=== PATIENT | female | born 1945 | race Hispanic/Latino ===

== ENCOUNTER 2017-07-26 09:20 | Observation (INO) | payer MEDICARE, OTHER ==
[2017-07-26 09:25] VITALS: BMI 29.2
[2017-07-26] MEDS ORDERED: Sodium Chloride 0.9% 1,000 ML IV STA (09:33)
--- NOTE | 2017-07-26 09:35 | ED PDOC ---
HPI: Abdomen Time Seen by Provider: 07/26/17 09:32 Chief Complaint (Nursing): Abdominal Pain Chief Complaint (Provider): Abd pain History Per: Patient History/Exam Limitations: no limitations Onset/Duration Of Symptoms: Days (3 weeks) Current Symptoms Are (Timing): Still Present Additional History Per: Patient Additional Complaint(s): Abd pain off and on for 3 weeks on the right lower and all over. Was suppose to get a catscan done for evaluation but has not done it yet. Pt. had constipation for 4 days so took Linzess for it and then started getting a lot of diarrhea, some blood tinged. No dysuria. No weakness, headaches, dizziness. Has nausea, no vomit. Has right lower back pain. Past Medical History Reviewed: Nursing Documentation, Vital Signs Vital Signs: Last Vital Signs Temp 98.2 F 07/26/17 09:23 Pulse 72 07/26/17 09:23 Resp 20 07/26/17 09:23 BP 125/82 07/26/17 09:23 Pulse Ox 98 07/26/17 13:38 - Medical History PMH: Anemia, Anxiety, Arthritis (NECK AND BACK), Asthma, Diverticulitis, HTN, Hypercholesterolemia (Does not take medications), Pneumonia, Sleep Apnea Denies: Chronic Kidney Disease - Surgical History Surgical History: No Surg Hx - Family History Family History: States: Unknown Family Hx - Living Arrangements Living Arrangements: With Family - Social History Current smoker - smoking cessation education provided: No Alcohol: None Drugs: Denies - Immunization History Hx Influenza Vaccination: No Hx Pneumococcal Vaccination: No - Home Medications Home Medications: Ambulatory Orders Medication Instructions Recorded Alprazolam 0.5 tab PO HS PRN 10/19/14 Gabapentin [Neurontin] 300 mg PO HS 10/19/14 ALPRAZolam [Xanax] 0.25 mg PO BID 12/16/15 Hyoscyamine Sulfate [Levbid] 0.375 mg PO DAILY 12/16/15 Telmisartan [Micardis] 40 mg PO DAILY 12/16/15 traMADol [Ultram] 50 mg PO DAILY PRN 12/16/15 Linaclotide [Linzess] 145 mcg PO PRN PRN 05/30/16 - Allergies Allergies/Adverse Reactions: Allergies Allergy/AdvReac Type Severity Reaction Status Date / Time ciprofloxacin [From Cipro] Allergy RASH Verified 07/26/17 09:33 ciprofloxacin HCl Allergy RASH Verified 07/26/17 09:33 [From Cipro] iodine Allergy RASH Verified 07/26/17 09:33 ondansetron HCl Allergy ANAPHYLAXIS Verified 07/26/17 09:33 [From Zofran (as hydrochloride)] pneumococcal vaccine Allergy RASH Verified 07/26/17 09:33 hydromorphone HCl AdvReac Intermediate ANAPHYLAXIS Verified 07/26/17 09:33 [From Dilaudid] Review of Systems ROS Statement: Except As Marked, All Systems Reviewed And Found Negative Gastrointestinal: Positive for: Nausea, Abdominal Pain, Diarrhea, Constipation, Hematochezia Physical Exam - Reviewed Nursing Documentation Reviewed: Yes Vital Signs Reviewed: Yes - Physical Exam Appears: Positive for: Non-toxic, No Acute Distress Head Exam: Positive for: ATRAUMATIC, NORMAL INSPECTION, NORMOCEPHALIC Skin: Positive for: Normal Color, Warm, DRY Eye Exam: Positive for: EOMI, Normal appearance, PERRL ENT: Positive for: Normal ENT Inspection Neck: Positive for: Normal, Painless ROM Cardiovascular/Chest: Positive for: Regular Rate, Rhythm Respiratory: Positive for: CNT, Normal Breath Sounds Gastrointestinal/Abdominal: Positive for: Bowel Sounds, Soft, Tenderness ( diffuse) Back: Positive for: Other (mild r lower). Negative for: L CVA Tenderness, R CVA Tenderness Extremity: Positive for: Normal ROM Neurologic/Psych: Positive for: Alert, Oriented - Laboratory Results Result Diagrams: 07/26/17 09:56 07/26/17 09:56 Interpretation Of Abn Labs: no acute Urine dip results: Negative for: Leukocyte Esterase, Nitrate - ECG ECG Rhythm: Positive for: Normal ST Segment, Sinus Rhythm. Negative for: Normal QRS (inferior q waves) O2 Sat by Pulse Oximetry: 98 Pulse Ox Interpretation: Normal - CT Scan/US ct Other Rad Studies (CT/US): Read By Radiologist Other Rad Interpretation: gallstones - Progress ED Course And Treament: 1353: Stable. AAOx3. Will give tylenol for pain control. No narcotics as pt. has anaphylaxis from dilaudid. Spoke with [facility] resident, will need admit for further eval. ED OBSERVATION Date of observation admission: 07/26/17 Time of observation admission: 09:35 - Observation admission statement Patient is being placed in observation because:: abd pain eval - Goals of Observation Goals of observation are:: pain control Disposition - Clinical Impression Clinical Impression: Abdominal pain - Patient ED Disposition Is Patient to be Admitted: Yes Counseled Patient/Family Regarding: Studies Performed, Diagnosis - Disposition Disposition Time: 13:54 Condition: FAIR - Pt Status Changed To: Hospital Disposition Of: Observation - POA Present On Arrival: None
[2017-07-26] MEDS ORDERED: Barium Sulfate Susp 2.1% w/v, 2.0% w/w 450 mL Bottle PO ONE ×3 (09:45)
[2017-07-26 10:05] LABS: BASO % 0.8 % (0.0-2.0); EOS # 0.2 K/uL (0.0-0.7); EOS % 3.3 % (0.0-4.0); LYMPH # 1.9 K/uL (1.0-4.3); LYMPH % 31.2 % (20.0-40.0); MEAN CELL VOLUME 93.3 fl (81.0-99.0); MEAN CORPUSCULAR HEMOGLOBIN 31.3 pg (27.0-31.0); MEAN CORPUSCULAR HGB CONC 33.6 g/dL (33.0-37.0); MEAN PLATELET VOLUME 8.6 fl (7.2-11.7); MONO # 0.6 K/uL (0.0-0.8); MONO % 10.3 % (0.0-10.0); NEUT # 3.4 K/uL (1.8-7.0); NEUT % 54.4 % (50.0-75.0); NRBC % 0.4 % (0.0-0.0); RED CELL DISTRIBUTION WIDTH 13.9 % (11.5-14.5); WHITE BLOOD COUNT 6.2 K/uL (4.8-10.8)
[2017-07-26 10:27] LABS: ALB/GLOB RATIO 1.3 (1.0-2.1); ALKALINE PHOSPHATASE 68 U/L (38-126); ALT/SGPT 25 U/L (9-52); AST/SGOT 27 U/L (14-36); BILIRUBIN,TOTAL 1.2 mg/dl (0.2-1.3); BLOOD UREA NITROGEN 16 mg/dl (7-17); CALCIUM 9.9 mg/dL (8.4-10.2); CARBON DIOXIDE 27 mmol/L (22-30); CHLORIDE 102 mmol/L (98-107); GFR AFRICAN-AMERICAN > 60; GLUCOSE,RANDOM 117 mg/dL (65-105); LIPASE 73 U/L (23-300); POTASSIUM 3.7 MMOL/L (3.6-5.0); SODIUM 139 mmol/l (132-148); TOTAL PROTEIN 7.8 G/DL (6.3-8.2)
--- NOTE | 2017-07-26 12:58 | CARD ---
APPROVED REPORT EKG Measurement Heart [id number] <Conclusion> Normal sinus rhythm Inferior infarct, age undetermined Abnormal ECG
--- NOTE | 2017-07-26 13:19 | CT ---
PROCEDURE: CT abdomen and pelvis dated 07/26/2017 HISTORY: Pain. COMPARISON: Comparison made with CT scan of the abdomen and pelvis 11/07/2016. TECHNIQUE: Contiguous axial images of the abdomen and pelvis. Oral contrast was administered. No IV contrast given. Coronal and Sagittal reformats generated. . Study slightly limited due to the lack of circulating intravenous contrast material. The Radiation dose: Total exam DLP = 751.45 mGy-cm. This CT exam was performed using one or more of the following dose reduction techniques: Automated exposure control, adjustment of the mA and/or kV according to patient size, and/or use of iterative reconstruction technique. FINDINGS: LOWER THORAX: Atelectatic/scarring changes both lung bases left greater than right. The. LIVER: Liver exhibits normal size measuring approximately 14 cm in CC dimension. No obvious hepatic mass collection or calcification on. . No gross lesion or ductal dilatation. GALLBLADDER AND BILE DUCTS: Cholelithiasis again noted. . No evidence of significant gallbladder wall thickening or pericholecystic fluid collections. PANCREAS: The pancreas is slightly atrophic and fatty replaced. . No obvious pancreatic mass collection or calcification. No significant pancreatic ductal dilatation. SPLEEN: Unremarkable. No splenomegaly. ADRENALS: The adrenal glands are slightly nodular in appearance. KIDNEYS AND URETERS: Kidneys demonstrate relatively symmetric size. No evidence of nephrolithiasis or hydronephrosis. BLADDER: Urinary bladder is incompletely distended which may account for slight thick-walled appearance. The possibility of a cystitis not excluded. No evidence of intraluminal urinary bladder calculi. REPRODUCTIVE: Hysterectomy APPENDIX: What is felt to represent the appendix best seen on coronal image number [id number]. No evidence of acute appendicitis. The BOWEL: Evaluation of the bowel is limited due to incomplete opacification. . The stomach is incompletely distended which presumably accounts for slight thick-walled appearance. Possibility of a gastritis or other intrinsic -invasive wall lesion cannot be excluded. Of. Visualized loops of small bowel exhibit normal contour and caliber. No evidence of acute mechanical small bowel obstruction. Stool and air seen throughout the colon. Diffuse colonic diverticulosis again noted predominantly located along the ascending, descending and sigmoid colon. There is mild wall thickening of the at ascending colon likely due to incomplete distention, peristalsis, non-opacified stool and muscular hypertrophy. No definitive radiographic evidence of acute diverticulitis. . Re- demonstrated are at least 2 fat containing ventral wall hernias, the more inferiorly located paraumbilical hernia contains very short segment of the anterior wall of the transverse colon which protrudes slightly through the defect . No evidence of obstruction. PERITONEUM: Unremarkable. No fluid collection. No free air. LYMPH NODES: Unremarkable. No enlarged lymph nodes. VASCULATURE: Unremarkable. No aortic aneurysm. BONES: Mild multilevel degenerative spondylosis of the lower thoracic and lumbar spine. No acute compression fractures no retropulsed fragments. OTHER FINDINGS: None. IMPRESSION: Diffuse colonic diverticulosis. No definitive radiographic evidence acute diverticulitis. 2 ventral wall hernias containing mesenteric fat, the more inferiorly located paraumbilical hernia contains a short segment of the anterior wall of the transverse colon which protrudes slightly into this hernia . Cholelithiasis. Nodular appearing adrenal glands. Urinary bladder is incompletely distended which may account for slight thick-walled appearance. The possibility of a cystitis not excluded. See above discussion for additional details and findings.
[2017-07-26] MEDS ORDERED: Acetaminophen 325 MG/10.15 ML PO STA ×2 (13:52)
[2017-07-26] MEDS: Dextrose 5%/0.45% NS 1,000 ML IV SCH (15:39)
--- NOTE | 2017-07-26 15:50 | CP.PCM.HP ---
History of Present Illness - History of Present Illness History of Present Illness: This is a 72 y/o F complaining of severe abdominal diffuse pain that aggravated since 3 weeks ago. Pain started several months ago, is described as pressure- like, more intense in epigastric and lower quadrants, intermittent, aggravates with bread and wheat toasts intake. Pt reports significant straining on bowel movements, BM every 2-3 days. Last BM was last night after 1 tab of Linzess, blood-tinged watery diarrhea. Pt complains of nausea since this morning. Pt reports having a CT scan on December this year, gallstones was reported to her at that time. ROS: Pt denies fever, headache, dizziness, CP, SOB, acid reflux, vomiting, urinary complaints or rash. PMD: Dr Pollack. Allergies: Anaphylaxis to Dilaudid. Ciprofloxacin, Iodine, Zofran. NO food allergies. PMHx: Chronic constipation, Diverticulosis, Asthma and HTN. PSHx: Hysterectomy in , Sigmoid Colectomy in 2012 due to diverticulitis. FHx: Non-Contributory. NO celiac disease Hx. SHx: No tobacco, EtOH socially and NO recreational drugs. ED Course: -CBC unremarkable -CMP unremarkable -EKG-normal sinus rythm, old inferior infarct. -CT Abdomen: diffuse colonic diverticulosis, 2 ventral wall hernias, cholelithiasis, possible cystitis. -Lipase 73-WNL -Troponin neg 1x. -Acetaminophen for pain relief. Present on Admission - Present on Admission Any Indicators Present on Admission: No History of Uncontrolled Diabetes: No Past Patient History - Infectious Disease Hx of Infectious Diseases: None - Tetanus Immunizations Tetanus Immunization: Unknown - Past Medical History & Family History Past Medical History?: Yes - Past Social History Alcohol: None Drugs: Denies - CARDIAC Hx Hypercholesterolemia: Yes (Does not take medications) Hx Hypertension: Yes - PULMONARY Hx Asthma: Yes Hx Pneumonia: Yes Hx Sleep Apnea: Yes - NEUROLOGICAL Hx Neurological Disorder: No - HEENT Hx HEENT Problems: Yes Hx Cataracts: Yes (BILATERAL) Other/Comment: DETACHED RETINA-RIGHT - RENAL Hx Chronic Kidney Disease: No - ENDOCRINE/METABOLIC Hx Endocrine Disorders: No - HEMATOLOGICAL/ONCOLOGICAL Hx Anemia: Yes - INTEGUMENTARY Hx Dermatological Problems: No - MUSCULOSKELETAL/RHEUMATOLOGICAL Hx Arthritis: Yes (NECK AND BACK) - GASTROINTESTINAL Hx Diverticulitis: Yes - GENITOURINARY/GYNECOLOGICAL Hx Genitourinary Disorders: No Hx Urinary Tract Infection: Yes Other/Comment: Chronic cystitis - PSYCHIATRIC Hx Anxiety: Yes - SURGICAL HISTORY Hx Surgeries: Yes Hx Cataract Extraction: Yes Hx Eye Surgery: Yes (VINAY CATARACT;DETACHED RETINA) Hx Hysterectomy: Yes Other/Comment: COLON RESECTION. RIGHT CARPAL TUNNEL - ANESTHESIA Hx Anesthesia: Yes Hx Anesthesia Reactions: No Hx Malignant Hyperthermia: No Meds Allergies/Adverse Reactions: Allergies Allergy/AdvReac Type Severity Reaction Status Date / Time ciprofloxacin [From Cipro] Allergy RASH Verified 07/26/17 09:33 ciprofloxacin HCl Allergy RASH Verified 07/26/17 09:33 [From Cipro] iodine Allergy RASH Verified 07/26/17 09:33 ondansetron HCl Allergy ANAPHYLAXIS Verified 07/26/17 09:33 [From Zofran (as hydrochloride)] pneumococcal vaccine Allergy RASH Verified 07/26/17 09:33 hydromorphone HCl AdvReac Intermediate ANAPHYLAXIS Verified 07/26/17 09:33 [From Dilaudid] Physical Exam - Constitutional Appears: Well, No Acute Distress - Head Exam Head Exam: ATRAUMATIC, NORMAL INSPECTION - Eye Exam Eye Exam: EOMI, Normal appearance - ENT Exam ENT Exam: Mucous Membranes Dry - Neck Exam Neck exam: Positive for: Full Rom, Normal Inspection - Respiratory Exam Respiratory Exam: Clear to Auscultation Bilateral, NORMAL BREATHING PATTERN - Cardiovascular Exam Cardiovascular Exam: +S1, +S2, Systolic Murmur - GI/Abdominal Exam GI & Abdominal Exam: Normal Bowel Sounds, Soft, Tenderness (over lower quadrants areas.). absent: Guarding - Neurological Exam Neurological exam: Alert, Oriented x3 - Skin Skin Exam: Dry, Intact, Normal Color Results - Vital Signs Recent Vital Signs: Last Vital Signs Temp 98.2 F 07/26/17 09:23 Pulse 72 07/26/17 09:23 Resp 20 07/26/17 09:23 BP 125/82 07/26/17 09:23 Pulse Ox 98 07/26/17 13:54 - Labs Result Diagrams: 07/26/17 09:56 07/26/17 09:56 Labs: Laboratory Results - last 24 hr 07/26/17 07/26/17 07/26/17 09:56 09:56 10:39 WBC 6.2 RBC 5.15 Hgb 16.1 H Hct 48.0 H MCV 93.3 MCH 31.3 H MCHC 33.6 RDW 13.9 Plt Count 201 MPV 8.6 Neut % (Auto) 54.4 Lymph % (Auto) 31.2 [place] % (Auto) 10.3 H Eos % (Auto) 3.3 Baso % (Auto) 0.8 Neut # 3.4 Lymph # 1.9 [place] # 0.6 Eos # 0.2 Baso # 0.0 Sodium 139 Potassium 3.7 Chloride 102 Carbon Dioxide 27 Anion Gap 14 BUN 16 Creatinine 0.9 Est GFR ( Amer) > 60 Est GFR (Non-Af Amer) > 60 Random Glucose 117 H Calcium 9.9 Total Bilirubin 1.2 AST 27 ALT 25 Alkaline Phosphatase 68 Troponin I < 0.0120 Total Protein 7.8 Albumin 4.5 Globulin 3.4 Albumin/Globulin Ratio 1.3 Lipase 73 Stool Occult Blood Negative Assessment & Plan - Assessment and Plan (Free Text) Assessment: 72 y/o F wiht a PMHx of Asthma, HTN, Diverticulosis and chronic constipation admitted for chronic severe diffuse abdominal pain. Plan: 1. Severe abdominal pain - EKG-normal sinus rythm, old inferior infarct. - CT Abdomen: diffuse colonic diverticulosis, 2 ventral wall hernias, cholelithiasis, possible cystitis. - Lipase 73-WNL - Troponin neg 1x. - Celiac disease panel ordered. - Repeat troponin I ordered. - Dextrose 5% 1L IV infusion at 84 mL/hr. - Metoclopramide 10 mg IVP Q6 PRN. - Toradol 30 mg IVP Q6 PRN. - Morphine 2mg IVP Q6 PRN for severe pain. - NPO now. Liquid diet will be initiated tomorrow. 2. Hypertension - Will resume home medications: Telmisartan 40 mg 3. DVT prophylaxis - SCDs - Lovenox 40mg SC HS. - Date & Time Date: 07/26/17 Time: 14:50
[2017-07-26] MEDS ORDERED: Albuterol HFA 90 mcg/actuation (8 g) IH PRN (19:59)
[2017-07-26] MEDS ORDERED: Patient's Own Med (Budesonide/Formoterol Fumarate [Symbicort 80-4.5 Mcg Inhaler] 2 PUFF) IH SCH (20:00)
[2017-07-26] MEDS ORDERED: GABAPENTIN ENACARBIL 300 MG PO SCH (22:00)
[2017-07-26] MEDS ORDERED: Enoxaparin 40 mg Syringe SC SCH (22:00)
[2017-07-26 22:31] VITALS: O2SAT 95
[2017-07-27] MEDS: Dextrose 5%/0.45% NS 1,000 ML IV SCH (03:10)
[2017-07-27 08:04] VITALS: BP 148/78; PULSE 63; RESP 19; TEMP 98.8
[2017-07-27] MEDS ORDERED: [UNRECOGNIZED DRUG - OTHER] PO SCH (09:00)
[2017-07-27] MEDS ORDERED: Simethicone 80 mg Chewtab PO ONE (10:03)
--- NOTE | 2017-07-27 14:06 | CP.PCM.DIS ---
Provider - Provider Date of Admission: 07/26/17 09:33 Attending physician: Ernesto Nam MD Time Spent in preparation of Discharge (in minutes): 30 Diagnosis - Discharge Diagnosis (1) Abdominal pain Status: Acute Comment: possible 2/2 medication side effects (from Linzess). Resolved on admission. F/u with PMD next week. (2) Hypertension Status: Chronic Priority: Medium Comment: c/w current management and f/u with PMD Hospital Course - Lab Results Lab Results: Most Recent Lab Values WBC 6.2 K/uL (4.8-10.8) 07/26/17 09:56 RBC 5.15 Mil/uL (3.80-5.20) 07/26/17 09:56 Hgb 16.1 g/dL (12.0-16.0) H 07/26/17 09:56 Hct 48.0 % (34.0-47.0) H 07/26/17 09:56 MCV 93.3 fl (81.0-99.0) 07/26/17 09:56 MCH 31.3 pg (27.0-31.0) H 07/26/17 09:56 MCHC 33.6 g/dL (33.0-37.0) 07/26/17 09:56 RDW 13.9 % (11.5-14.5) 07/26/17 09:56 Plt Count 201 K/uL (130-400) 07/26/17 09:56 MPV 8.6 fl (7.2-11.7) 07/26/17 09:56 Neut % (Auto) 54.4 % (50.0-75.0) 07/26/17 09:56 Lymph % (Auto) 31.2 % (20.0-40.0) 07/26/17 09:56 [place] % (Auto) 10.3 % (0.0-10.0) H 07/26/17 09:56 Eos % (Auto) 3.3 % (0.0-4.0) 07/26/17 09:56 Baso % (Auto) 0.8 % (0.0-2.0) 07/26/17 09:56 Neut # 3.4 K/uL (1.8-7.0) 07/26/17 09:56 Lymph # 1.9 K/uL (1.0-4.3) 07/26/17 09:56 [place] # 0.6 K/uL (0.0-0.8) 07/26/17 09:56 Eos # 0.2 K/uL (0.0-0.7) 07/26/17 09:56 Baso # 0.0 K/uL (0.0-0.2) 07/26/17 09:56 Sodium 139 mmol/l (132-148) 07/26/17 09:56 Potassium 3.7 MMOL/L (3.6-5.0) 07/26/17 09:56 Chloride 102 mmol/L (98-107) 07/26/17 09:56 Carbon Dioxide 27 mmol/L (22-30) 07/26/17 09:56 Anion Gap 14 (10-20) 07/26/17 09:56 BUN 16 mg/dl (7-17) 07/26/17 09:56 Creatinine 0.9 mg/dL (0.7-1.2) 07/26/17 09:56 Est GFR ( Amer) > 60 07/26/17 09:56 Est GFR (Non-Af Amer) > 60 07/26/17 09:56 Random Glucose 117 mg/dL (65-105) H 07/26/17 09:56 Calcium 9.9 mg/dL (8.4-10.2) 07/26/17 09:56 Total Bilirubin 1.2 mg/dl (0.2-1.3) 07/26/17 09:56 AST 27 U/L (14-36) 07/26/17 09:56 ALT 25 U/L (9-52) 07/26/17 09:56 Alkaline Phosphatase 68 U/L (38-126) 07/26/17 09:56 Troponin I < 0.0120 ng/mL (0.00-0.120) 07/26/17 17:20 Total Protein 7.8 G/DL (6.3-8.2) 07/26/17 09:56 Albumin 4.5 g/dL (3.5-5.0) 07/26/17 09:56 Globulin 3.4 gm/dL (2.2-3.9) 07/26/17 09:56 Albumin/Globulin Ratio 1.3 (1.0-2.1) 07/26/17 09:56 Lipase 73 U/L (23-300) 07/26/17 09:56 Stool Occult Blood Negative (NEGATIVE) 07/26/17 10:39 - Hospital Course Hospital Course: 72 y/o F wiht a PMHx of Asthma, HTN, Diverticulosis and Chronic constipation admitted for management of chronic severe diffuse abdominal pain associated with blood-tinged watery diarrhea. During admission patient was managed with NPO , IV fluids, antiemetics , and pain control. abdomen CT showed diffuse colonic diverticulosis, 2 ventral wall hernias containing mesenteric fat, and cholelithiasis, and no evidence of obstruction. Troponin x 2 neg. FOBT neg. Lipase neg. CBC/CMP unremarkable. Today morning we started advancing diet from liquid diet to solid, and patient tolerated well PO challenge. No more reported episodes of diarrheas after admission. Patient was afebrile, and vital signs stable WNL. Patient stable to be discharge home, and will f/u with PMD, Dr. Nam next week. We recommended keep good hydration, fruits and vegetables, Colace 200 mg PO daily PRN and Miralax 17 gm daily PRN to manage constipation at home, as well as avoid strong laxative. If current recommended constipation treatment do not work, patient could discuss with her PMD, Lactulose PO. - Date & Time of H&P Date of H&P: 07/26/17 Time of H&P: 15:15 Discharge Exam - Head Exam Head Exam: ATRAUMATIC, NORMAL INSPECTION - ENT Exam ENT Exam: Mucous Membranes Moist - Respiratory Exam Respiratory Exam: Clear to PA & Lateral, NORMAL BREATHING PATTERN - Cardiovascular Exam Cardiovascular Exam: REGULAR RHYTHM, +S1, +S2 - GI/Abdominal Exam GI & Abdominal Exam: Normal Bowel Sounds, Soft. absent: Distended, Tenderness - Extremities Exam Extremities exam: normal inspection Additional comments: No edema in lower extremities, no calves tenderness noted. - Neurological Exam Neurological exam: Alert, Oriented x3 - Skin Skin Exam: Dry, Intact, Normal Color Discharge Plan - Discharge Medications Prescriptions: Docusate Sodium [Colace] 200 mg PO DAILY PRN #30 capsule PRN Reason: Constipation Polyethylene Glycol 3350 [Miralax] 17 gm PO DAILY PRN #1 PRN Reason: Constipation - Follow Up Plan Condition: GOOD Disposition: HOME/ ROUTINE Patient education suggested?: Yes Instructions: Diverticulitis (DC) Additional Instructions: f/u with PMD in 1 week ER precautions given
== END 2017-07-27 15:20 | disposition home or self-care (01) ==
LOC: H.ER 09:20 → H.EROBSV 09:33 → H.ERHOLD 14:00 → H.MEDSURG1 18:08
PROVIDERS: ADMIT Family Medicine; ATTEND Family Medicine
DX: K57.30 Diverticulosis of large intestine without perforation or abscess without bleeding (principal); E78.00 Pure hypercholesterolemia, unspecified; G47.30 Sleep apnea, unspecified; I10 Essential (primary) hypertension; J45.909 Unspecified asthma, uncomplicated; K59.00 Constipation, unspecified; K80.20 Calculus of gallbladder without cholecystitis without obstruction; N30.20 Other chronic cystitis without hematuria; Z79.899 Other long term (current) drug therapy; Z87.01 Personal history of pneumonia (recurrent); Z87.440 Personal history of urinary (tract) infections; Z90.710 Acquired absence of both cervix and uterus; D64.9 Anemia, unspecified; F41.9 Anxiety disorder, unspecified; G56.01 Carpal tunnel syndrome, right upper limb; H26.9 Unspecified cataract; K59.09 Other constipation; M19.90 Unspecified osteoarthritis, unspecified site; M54.5 Low back pain
CPT/HCPCS: 74176; 80053; 82784; 83516; 83690; 84484; 85025; 93005; 96374; 99285; G0328; G0378; J1650; J1885; J2765; J7040; J7042

== ENCOUNTER 2017-11-21 18:18 | Inpatient (IN) | payer MEDICARE, OTHER ==
[2017-11-21 18:18] VITALS: BMI 29.2
--- NOTE | 2017-11-21 20:08 | ED PDOC ---
HPI: Chest Pain Time Seen by Provider: 11/21/17 19:12 Chief Complaint (Nursing): Chest Pain Chief Complaint (Provider): Chest Pain History Per: Patient History/Exam Limitations: no limitations Onset/Duration Of Symptoms: Days (x1) Current Symptoms Are (Timing): Still Present Additional Complaint(s): 72 year old female with previous medical history of CAD, hypertension and hypercholesterolemia, who presents to the emergency department via EMS for a complaint of left-sided chest pressure associated with left-sided shoulder pain , nausea, vomiting and sweating ongoing since this morning. Denied any shortness of breath. Upon arrival to ED, chest pain had resolved but patient reported feeling anxious because symptoms were similar to previous heart attack. Patient also stated she took 3 baby Aspirins prior to arrival and thinks her left shoulder pain stems from her cervical stenosis. PMD: none provided Past Medical History Reviewed: Historical Data, Nursing Documentation, Vital Signs Vital Signs: Last Vital Signs Temp 98 F 11/21/17 18:29 Pulse 63 11/21/17 23:04 Resp 16 11/21/17 23:04 BP 154/68 H 11/21/17 23:04 Pulse Ox 95 11/21/17 21:51 - Medical History PMH: Anemia, Anxiety, Arthritis (NECK AND BACK), Asthma, Depression, Diverticulitis, HTN, Hypercholesterolemia, Pneumonia, Sleep Apnea Denies: Chronic Kidney Disease - Surgical History Surgical History: Denies: No Surg Hx - Family History Family History: States: Unknown Family Hx - Social History Current smoker - smoking cessation education provided: No Ex-Smoker (has not smoked in the last 12 months): No Alcohol: None Drugs: Denies - Immunization History Hx Influenza Vaccination: No Hx Pneumococcal Vaccination: No - Home Medications Home Medications: Ambulatory Orders Medication Instructions Recorded ALPRAZolam [Xanax] 0.25 mg PO DAILY PRN 12/16/15 Budesonide/Formoterol Fumarate 2 puff IH DAILY 07/26/17 [Symbicort 80-4.5 Mcg Inhaler] Fluticasone Nasal [Flonase] 2 spray JOANNA DAILY PRN 07/26/17 Gabapentin Enacarbil [Horizant] 300 mg PO HS PRN 07/26/17 Aspirin [Ecotrin] 81 mg PO DAILY tabec 08/13/17 Montelukast [Singulair] 10 mg PO DAILY 11/21/17 Telmisartan [Micardis] 40 mg PO DAILY 11/21/17 - Allergies Allergies/Adverse Reactions: Allergies Allergy/AdvReac Type Severity Reaction Status Date / Time ciprofloxacin [From Cipro] Allergy RASH Verified 11/21/17 18:28 ciprofloxacin HCl Allergy RASH Verified 11/21/17 18:28 [From Cipro] iodine Allergy RASH Verified 11/21/17 18:28 ondansetron HCl Allergy ANAPHYLAXIS Verified 11/21/17 18:28 [From Zofran (as hydrochloride)] pneumococcal vaccine Allergy RASH Verified 11/21/17 18:28 hydromorphone HCl AdvReac Intermediate ANAPHYLAXIS Verified 11/21/17 18:28 [From Dilaudid] Review of Systems ROS Statement: Except As Marked, All Systems Reviewed And Found Negative Constitutional: Positive for: Sweats Cardiovascular: Positive for: Chest Pain (left-sided pressure-resolved) Respiratory: Negative for: Shortness of Breath Gastrointestinal: Positive for: Nausea, Vomiting Musculoskeletal: Positive for: Shoulder Pain (left-sided) Psych: Positive for: Anxiety Physical Exam - Reviewed Nursing Documentation Reviewed: Yes Vital Signs Reviewed: Yes - Physical Exam Appears: Positive for: Well, Non-toxic, No Acute Distress Head Exam: Positive for: ATRAUMATIC, NORMAL INSPECTION, NORMOCEPHALIC Skin: Positive for: Normal Color Eye Exam: Positive for: Normal appearance, EOMI, PERRL. Negative for: Nystagmus ENT: Positive for: Normal ENT Inspection Neck: Positive for: Normal, Painless ROM, Supple. Negative for: Decreased ROM Cardiovascular/Chest: Positive for: Regular Rate, Rhythm, Chest Non Tender Respiratory: Positive for: Normal Breath Sounds. Negative for: Decreased Breath Sounds, Wheezing, Respiratory Distress Gastrointestinal/Abdominal: Positive for: Normal Exam, Soft. Negative for: Tenderness Back: Positive for: Normal Inspection. Negative for: L CVA Tenderness, R CVA Tenderness Extremity: Positive for: Normal ROM (upper/lower). Negative for: Pedal Edema ( bilateral), Calf Tenderness (bilateral) Neurologic/Psych: Positive for: Alert (x3), Oriented. Negative for: Motor/ Sensory Deficits - Laboratory Results Result Diagrams: 11/21/17 20:40 11/21/17 20:40 - ECG O2 Sat by Pulse Oximetry: 95 (RA) Pulse Ox Interpretation: Normal Medical Decision Making Medical Decision Making: Initial Impression: Chest pain (high risk) Initial Plan: * EKG * BNP * Troponin I * CBC * PTT * PT * CXR ____ Time: 1940 --EKG: NSR at 62 BMP. Old septal infarct seen with no changes. No STEMI noted. --Patient to be admitted to hospital for observation due to recent STEMI, cardiac risk factors, age and current symptoms. Time: 2137 --Discussed case with family practice attending. Patient will be admitted to Dr. Gonzales under family practice services. Current workup negative Scribe Attestation: Documented by Nat Manjarrez, acting as a scribe for Jorge Bingham MD. Provider Scribe Attestation: All medical record entries made by the Scribe were at my direction and personally dictated by me. I have reviewed the chart and agree that the record accurately reflects my personal performance of the history, physical exam, medical decision making, and the department course for this patient. I have also personally directed, reviewed, and agree with the discharge instructions and disposition. Disposition - Clinical Impression Clinical Impression: Chest pain - Disposition Disposition Time: 21:38 Condition: GUARDED
[2017-11-21 20:48] LABS: BASO % 0.5 % (0.0-2.0); EOS # 0.1 K/uL (0.0-0.7); EOS % 1.3 % (0.0-4.0); HEMOGLOBIN 14.7 g/dL (12.0-16.0); LYMPH # 1.3 K/uL (1.0-4.3); LYMPH % 12.6 % (20.0-40.0); MEAN CELL VOLUME 91.3 fl (81.0-99.0); MEAN CORPUSCULAR HGB CONC 32.9 g/dL (33.0-37.0); MEAN PLATELET VOLUME 8.3 fl (7.2-11.7); MONO # 0.8 K/uL (0.0-0.8); NEUT # 7.7 K/uL (1.8-7.0); NEUT % 77.6 % (50.0-75.0); RBC 4.9 Mil/uL (3.80-5.20); RED CELL DISTRIBUTION WIDTH 13.7 % (11.5-14.5)
[2017-11-21 21:06] LABS: PARTIAL THROMBOPLASTIN TIME 26.9 Seconds (25.6-37.1); PROTHROMBIN TIME 11.1 Seconds (9.8-13.1)
[2017-11-21 21:08] LABS: BLOOD UREA NITROGEN 17 mg/dl (7-17); CALCIUM 9.6 mg/dL (8.4-10.2); GFR AFRICAN-AMERICAN > 60; GFR NON-AFRICAN AMERICAN > 60
[2017-11-21 21:22] LABS: B-TYPE NATRIURETIC PEPTIDE 97.3 pg/ml (0-900)
--- NOTE | 2017-11-21 22:27 | CP.PCM.HP ---
<Juan Laguna - Last Filed: 11/22/17 00:29> History of Present Illness - History of Present Illness History of Present Illness: CC: left chest pressure, left shoulder pain HPI: 72 y/o woman w/ pmh of HTN, HLD, diverticulosis, CAD, STEMI s/p x1 stent in 08/2017 brought by EMS presents to the ED w/ left chest pressure and left shoulder pain. Patient reports pain since yesterday, sharp in nature, radiating to left neck and head, constant, not relieved by anything, and worsened w/ movement. Patient also complains of left sided chest pressure similar to pressure when she had [place] 3 months ago. Patient took aleve without relief. Patient took tramadol w/ mild relief but had x1 episode of non-bloody/ non-bilious vomit. Patient then felt chills and left sided chest pressure. Patient took x3 baby aspirin prior to ED arrival. Patient denies recent trauma or fall. Patient denies headaches, dizziness, SOB, abdominal pain, dysuria, or fever. ED course: Vitals: 98.0 F, 63 bpm, 154/68 mm Hg, resp 16, O2 95% RA CBC: 10.0>14.7/44.7<187 BMP: 135/3.8, 93/32, 17/0.9, glucose 124, pro-BNP: 97.3 Troponin I: <0.0120 PTT: 26.9 PT: 11.1 INR: 1.0 EKG: NSR, old infarct, no acute ST elevation/depression, no widened QT, QRS, ND CXR: (preliminary) no acute disease process PMD: Dr Pollack. Allergies: Anaphylaxis to Dilaudid. Ciprofloxacin, Iodine, Zofran. NO food allergies. PMHx: Chronic constipation, Diverticulosis, Asthma and HTN. meds: see medlist PSHx: Hysterectomy in 1990s, Sigmoid Colectomy in 2012 due to diverticulitis. FamHx: Non-Contributory SOC: denies smoking, alcohol, and illegal drugs. ROS: 12 points assessed and negative unless otherwise reported in HPI Present on Admission - Present on Admission Any Indicators Present on Admission: No History of DVT/PE: No History of Uncontrolled Diabetes: No Urinary Catheter: No Decubitus Ulcer Present: No Review of Systems - Review of Systems All systems: reviewed and no additional remarkable complaints except - Constitutional Constitutional: Chills. absent: Fever, Frequent Falls, Headache - EENT Eyes: absent: Change in Vision - Cardiovascular Cardiovascular: As Per HPI. absent: Dyspnea, Leg Edema, Palpitations, Syncope - Respiratory Respiratory: absent: Dyspnea, Wheezing - Gastrointestinal Gastrointestinal: Nausea, Vomiting. absent: Abdominal Pain, Diarrhea, Hematochezia, Melena - Genitourinary Genitourinary: absent: Dysuria, Hematuria - Integumentary Integumentary: absent: Rash - Neurological Neurological: absent: Headaches, Paresthesias, Vertigo Past Patient History - Infectious Disease Hx of Infectious Diseases: None - Tetanus Immunizations Tetanus Immunization: Unknown - Past Medical History & Family History Past Medical History?: Yes - Past Social History Alcohol: None Drugs: Denies - CARDIAC Hx Hypercholesterolemia: Yes Hx Hypertension: Yes - PULMONARY Hx Asthma: Yes Hx Pneumonia: Yes Hx Sleep Apnea: Yes - NEUROLOGICAL Hx Neurological Disorder: No - HEENT Hx HEENT Problems: Yes Hx Cataracts: Yes (BILATERAL) Other/Comment: DETACHED RETINA-RIGHT - RENAL Hx Chronic Kidney Disease: No - ENDOCRINE/METABOLIC Hx Endocrine Disorders: No - HEMATOLOGICAL/ONCOLOGICAL Hx Anemia: Yes - INTEGUMENTARY Hx Dermatological Problems: No - MUSCULOSKELETAL/RHEUMATOLOGICAL Hx Arthritis: Yes (NECK AND BACK) - GASTROINTESTINAL Hx Diverticulitis: Yes - GENITOURINARY/GYNECOLOGICAL Hx Genitourinary Disorders: No Hx Urinary Tract Infection: Yes Other/Comment: Chronic cystitis - PSYCHIATRIC Hx Anxiety: Yes Hx Depression: Yes - SURGICAL HISTORY Hx Surgeries: Yes Hx Cataract Extraction: Yes Hx Eye Surgery: Yes (VINAY CATARACT;DETACHED RETINA) Hx Hysterectomy: Yes Other/Comment: COLON RESECTION. RIGHT CARPAL TUNNEL - ANESTHESIA Hx Anesthesia: Yes Hx Anesthesia Reactions: No Hx Malignant Hyperthermia: No Meds Allergies/Adverse Reactions: Allergies Allergy/AdvReac Type Severity Reaction Status Date / Time ciprofloxacin [From Cipro] Allergy RASH Verified 11/21/17 18:28 ciprofloxacin HCl Allergy RASH Verified 11/21/17 18:28 [From Cipro] iodine Allergy RASH Verified 11/21/17 18:28 ondansetron HCl Allergy ANAPHYLAXIS Verified 11/21/17 18:28 [From Zofran (as hydrochloride)] pneumococcal vaccine Allergy RASH Verified 11/21/17 18:28 hydromorphone HCl AdvReac Intermediate ANAPHYLAXIS Verified 11/21/17 18:28 [From Dilaudid] Physical Exam - Constitutional Appears: Non-toxic, No Acute Distress - Head Exam Head Exam: ATRAUMATIC, NORMAL INSPECTION, NORMOCEPHALIC - Eye Exam Eye Exam: Normal appearance - ENT Exam ENT Exam: Normal Exam - Neck Exam Neck exam: Positive for: Full Rom. Negative for: Tenderness - Respiratory Exam Respiratory Exam: Clear to Auscultation Bilateral, NORMAL BREATHING PATTERN. absent: Decreased Breath Sounds, Prolonged Expiratory Phase, Rales, Rhonchi, Wheezes, Respiratory Distress - Cardiovascular Exam Cardiovascular Exam: REGULAR RHYTHM - GI/Abdominal Exam GI & Abdominal Exam: Normal Bowel Sounds, Soft. absent: Tenderness - Extremities Exam Extremities exam: Positive for: full ROM, normal inspection. Negative for: calf tenderness, pedal edema, tenderness - Back Exam Back exam: NORMAL INSPECTION - Neurological Exam Neurological exam: Alert, Oriented x3 - Skin Skin Exam: Dry, Intact, Normal Color, Warm Results - Vital Signs Recent Vital Signs: Last Vital Signs Temp 98 F 11/21/17 18:29 Pulse 63 11/21/17 19:55 Resp 16 11/21/17 19:55 BP 154/68 H 11/21/17 19:55 Pulse Ox 95 11/21/17 21:51 - Labs Result Diagrams: 11/21/17 20:40 11/21/17 20:40 Labs: Laboratory Results - last 24 hr 11/21/17 11/21/17 11/21/17 20:40 20:40 20:40 WBC 10.0 D RBC 4.90 Hgb 14.7 Hct 44.7 MCV 91.3 D MCH 30.0 MCHC 32.9 L RDW 13.7 Plt Count 187 MPV 8.3 Neut % (Auto) 77.6 H Lymph % (Auto) 12.6 L [place] % (Auto) 8.0 Eos % (Auto) 1.3 Baso % (Auto) 0.5 Neut # 7.7 H Lymph # 1.3 [place] # 0.8 Eos # 0.1 Baso # 0.0 PT 11.1 INR 1.0 APTT 26.9 Sodium 135 Potassium 3.8 Chloride 93 L Carbon Dioxide 32 H Anion Gap 14 BUN 17 Creatinine 0.9 Est GFR ( Amer) > 60 Est GFR (Non-Af Amer) > 60 Random Glucose 124 H Calcium 9.6 Troponin I < 0.0120 NT-Pro-B Natriuret Pep 97.3 Assessment & Plan - Assessment and Plan (Free Text) Assessment: 72 y/o woman w/ pmh of HTN, HLD, diverticulosis, CAD, [place] s/p x1 stent in 2016 brought by EMS presents to the ED w/ left chest pressure and left shoulder pain. Plan: Left chest pressure - Rule out ACS - previous [place] 08/2017, x1 stent in [facility] - felt similar pain to [place] 3 months ago - took x3 baby aspirin prior to ED arrival - EKG: NSR, old infarct, no acute ST elevation/depression, no widened QT, QRS, ND - Troponin I: <0.0120 - f/u x2 troponin Q8h - f/u repeat EKG - admit to Tele - continue to monitor for acute changes Left shoulder pain - full ROM - mildly tender - f/u left shoulder XR - tylenol and percocet for pain prn CAD - STEMI s/p x1 stent 08/2017 - on metoprolol succinate 25 mg PO daily, rosuvastatin 10 mg PO daily, ASA 81 mg PO daily, and brilinta 90 mg PO daily HTN - BP mildly elevated 154/68 mm Hg most likely 2/2 to pain - controlled w/ losartan 25 mg PO daily and metoprolol succinate 25 mg PO daily Prophylactic measures - SCDs, patient already on anticoagulant - protonix 40 mg PO daily <Ernesto Nam - Last Filed: 11/22/17 07:03> Results - Vital Signs Recent Vital Signs: Last Vital Signs Temp 98.3 F 11/22/17 05:55 Pulse 61 11/22/17 05:55 Resp 18 11/22/17 05:55 BP 142/74 11/22/17 05:55 Pulse Ox 95 11/22/17 05:55 - Labs Result Diagrams: 11/22/17 04:34 11/22/17 04:34 Labs: Laboratory Results - last 24 hr 11/21/17 11/21/17 11/21/17 20:40 20:40 20:40 WBC 10.0 D RBC 4.90 Hgb 14.7 Hct 44.7 MCV 91.3 D MCH 30.0 MCHC 32.9 L RDW 13.7 Plt Count 187 MPV 8.3 Neut % (Auto) 77.6 H Lymph % (Auto) 12.6 L [place] % (Auto) 8.0 Eos % (Auto) 1.3 Baso % (Auto) 0.5 Neut # 7.7 H Lymph # 1.3 [place] # 0.8 Eos # 0.1 Baso # 0.0 PT 11.1 INR 1.0 APTT 26.9 Sodium 135 Potassium 3.8 Chloride 93 L Carbon Dioxide 32 H Anion Gap 14 BUN 17 Creatinine 0.9 Est GFR ( Amer) > 60 Est GFR (Non-Af Amer) > 60 Random Glucose 124 H Calcium 9.6 Troponin I < 0.0120 NT-Pro-B Natriuret Pep 97.3 11/22/17 11/22/17 11/22/17 04:34 04:34 04:34 WBC 8.4 RBC 4.76 Hgb 14.5 Hct 43.3 MCV 90.9 MCH 30.5 MCHC 33.5 RDW 13.7 Plt Count 184 MPV 8.7 Neut % (Auto) 66.1 Lymph % (Auto) 20.8 [place] % (Auto) 10.2 H Eos % (Auto) 2.3 Baso % (Auto) 0.6 Neut # 5.5 Lymph # 1.7 [place] # 0.9 H Eos # 0.2 Baso # 0.0 PT INR APTT Sodium 135 Potassium 3.7 Chloride 92 L Carbon Dioxide 32 H Anion Gap 15 BUN 16 Creatinine 0.9 Est GFR ( Amer) > 60 Est GFR (Non-Af Amer) > 60 Random Glucose 102 Calcium 9.7 Troponin I < 0.0120 NT-Pro-B Natriuret Pep Attending/Attestation - Attestation I have personally seen and examined this patient.: Yes I have fully participated in the care of the patient.: Yes I have reviewed all pertinent clinical information: Yes
[2017-11-21] MEDS ORDERED: Oxycodone/Acetaminophen 5/325 mg Tab PO PRN (22:42)
[2017-11-22] MEDS ORDERED: Alum-Mag Hydrox-Simethicone Susp (30 mL) PO PRN (01:57)
[2017-11-22 05:59] LABS: BASO % 0.6 % (0.0-2.0); EOS # 0.2 K/uL (0.0-0.7); EOS % 2.3 % (0.0-4.0); HEMOGLOBIN 14.5 g/dL (12.0-16.0); LYMPH # 1.7 K/uL (1.0-4.3); LYMPH % 20.8 % (20.0-40.0); MEAN CELL VOLUME 90.9 fl (81.0-99.0); MEAN CORPUSCULAR HEMOGLOBIN 30.5 pg (27.0-31.0); MEAN CORPUSCULAR HGB CONC 33.5 g/dL (33.0-37.0); MEAN PLATELET VOLUME 8.7 fl (7.2-11.7); MONO # 0.9 K/uL (0.0-0.8); MONO % 10.2 % (0.0-10.0); NEUT # 5.5 K/uL (1.8-7.0); NEUT % 66.1 % (50.0-75.0); NRBC % 0.1 % (0.0-0.0); RBC 4.76 Mil/uL (3.80-5.20); RED CELL DISTRIBUTION WIDTH 13.7 % (11.5-14.5); WHITE BLOOD COUNT 8.4 K/uL (4.8-10.8)
[2017-11-22 06:06] LABS: BLOOD UREA NITROGEN 16 mg/dl (7-17); CALCIUM 9.7 mg/dL (8.4-10.2); GFR AFRICAN-AMERICAN > 60; GFR NON-AFRICAN AMERICAN > 60
--- NOTE | 2017-11-22 07:33 | RAD ---
HISTORY: CP, L shoulder pain COMPARISON: No prior chest radiographs available for comparison. TECHNIQUE: Chest PA and lateral FINDINGS: LUNGS: Trace linear atelectasis or fibrosis in the inferior left lung zone laterally. No alveolar infiltrate bilaterally. PLEURA: No significant pleural effusion identified. No pneumothorax apparent. CARDIOVASCULAR: Normal. OSSEOUS STRUCTURES: No significant abnormalities. VISUALIZED UPPER ABDOMEN: Normal. OTHER FINDINGS: None. IMPRESSION: No acute infiltrate bilaterally. Limited linear atelectasis or fibrosis left base. Unremarkable appearing cardiomediastinal silhouette.
--- NOTE | 2017-11-22 07:41 | RAD ---
PROCEDURE: Radiographs of the Left Shoulder HISTORY: shoulder pain COMPARISON: No prior. FINDINGS: BONES: No acute fracture or destructive bony lesion identified. JOINTS: Degenerative cortical sclerosis and osteophyte development are identified at the acromioclavicular joint with very limited degenerative changes appreciate the glenohumeral joint. SOFT TISSUES: Normal. OTHER FINDINGS: None. IMPRESSION: No acute fracture or dislocation. Degenerative joint changes seen as discussed above.
--- NOTE | 2017-11-22 08:32 | CARD ---
APPROVED REPORT EKG Measurement Heart [id number] <Conclusion> Normal sinus rhythm
[2017-11-22] MEDS ORDERED: Patient's Own Med (Budesonide/Formoterol Fumarate [Symbicort 80-4.5 Mcg Inhaler] 2 PUFF) IH SCH (09:00)
--- NOTE | 2017-11-22 09:24 | CP.PCM.PN ---
Subjective - Date & Time of Evaluation Date of Evaluation: 11/22/17 Time of Evaluation: 07:00 - Subjective Subjective: Patient seen and examined bedside. patient reports left shoulder pain and left side neck pain. Patient also c/o LLQ abd pain started overnight intermittent, but not in pain now. she reports hx/o diverticulosis and chronic LLQ abd pain. she denies fever, n,v,d. no chest pain now, reports she only had left side chest pressure. Objective - Vital Signs/Intake and Output Vital Signs (last 24 hours): Temp Pulse Resp BP Pulse Ox 98.3 F 60 18 168/76 H 94 L 11/22/17 08:00 11/22/17 08:00 11/22/17 08:00 11/22/17 08:00 11/22/17 08:00 - Medications Medications: Current Medications Acetaminophen (Tylenol 325mg Tab) 650 mg PO Q6 PRN PRN Reason: Pain, Mild (1-3) Al Hydrox/Mg Hydrox/Simethicone (Maalox Plus 30 Ml) 30 ml PO Q6 PRN PRN Reason: Indigestion / Heartburn Last Admin: 11/22/17 03:58 Dose: 30 ml Aspirin (Ecotrin) 81 mg PO DAILY [facility] Atorvastatin Calcium (Lipitor) 20 mg PO DAILY SINDHU Fluticasone Propionate (Flonase) 2 spr JOANNA DAILY PRN PRN Reason: Allergy symptoms Losartan Potassium (Cozaar) 25 mg PO DAILY S[facility] Metoprolol Succinate (Toprol Xl) 25 mg PO DAILY SIND[facility] Montelukast Sodium (Singulair) 10 mg PO DAILY S[facility] Oxycodone/Acetaminophen (Percocet 5/325 Mg Tab) 1 tab PO Q4 PRN PRN Reason: Pain, moderate (4-7) Stop: 11/24/17 22:43 Last Admin: 11/21/17 23:21 Dose: 1 tab Pantoprazole Sodium (Protonix Ec Tab) 40 mg PO DAILY SIND[facility] Fluticasone/Salmeterol (Advair Diskus 100/50) 1 puff IH Q12 SIND[facility] Ticagrelor (Brilinta) 90 mg PO BID SINDHU - Labs Labs: 11/22/17 04:34 11/22/17 04:34 PT 11.1 Seconds (9.8-13.1) 11/21/17 20:40 INR 1.0 (0.9-1.2) 11/21/17 20:40 APTT 26.9 Seconds (25.6-37.1) 11/21/17 20:40 - Constitutional Appears: Non-toxic, No Acute Distress - Head Exam Head Exam: ATRAUMATIC, NORMOCEPHALIC - Eye Exam Eye Exam: Normal appearance - ENT Exam ENT Exam: Mucous Membranes Moist - Neck Exam Neck Exam: Normal Inspection Additional comments: TD to palpation over neck left lateral side, trapezius muscle and left interscapular region. no limited ROM for neck. no limited ROM for shoulder. - Respiratory Exam Respiratory Exam: Chest Wall Tenderness, Clear to Ausculation Bilateral. absent : Rales, Wheezes Additional comments: reproducible chest pain left side - Cardiovascular Exam Cardiovascular Exam: REGULAR RHYTHM, +S1, +S2 - GI/Abdominal Exam GI & Abdominal Exam: Soft, Normal Bowel Sounds. absent: Guarding, Rigid, Tenderness Additional comments: reporting llq abd pain but PE normal - Extremities Exam Extremities Exam: Full ROM, Normal Inspection. absent: Pedal Edema - Back Exam Back Exam: NORMAL INSPECTION - Neurological Exam Neurological Exam: Alert, Awake, Oriented x3 - Psychiatric Exam Psychiatric exam: Normal Affect - Skin Skin Exam: Intact Assessment and Plan - Assessment and Plan (Free Text) Plan: 72 y/o woman w/ pmh of HTN, HLD, diverticulosis, CAD, [place] s/p x1 stent in 2016 brought by EMS presents to the ED w/ left chest pressure and left shoulder pain. Plan: 1)Left chest pressure - Rule out ACS - previous [place] 08/[place], x1 stent in [facility] - felt similar pain to [place] 3 months ago - took x3 baby aspirin prior to ED arrival - EKG: NSR, old infarct, no acute ST elevation/depression, no widened QT, QRS, [place] - Troponin x 2 neg I: <0.0120 - admit to Tele - continue to monitor for acute changes -concrete engineering technician consult suggested: seen last time by Dr Stoddard 2)Left shoulder pain - full ROM - mildly tender - XR left shoulder: degenarative changes OA - tylenol and percocet for pain prn 3) LLQ abd pain -to r/o diverticulitis -Hx/o Diverticulosis -CT abd w/o contrast. pt allergic to iodine 4)CAD - STEMI s/p x1 stent 08/2017 - on metoprolol succinate 25 mg PO daily, rosuvastatin 10 mg PO daily, ASA 81 mg PO daily, and brilinta 90 mg PO daily 5)HTN -Telmisartan 40 mg po daily - metoprolol succinate 25 mg PO daily 6) DVT Prophylaxis - SCDs
[2017-11-22] MEDS: Fluticasone-Salmeterol 100-50mcg Diskus IH SCH ×2 (09:26→20:06)
[2017-11-22] MEDS: Metoprolol Succinate 25 mg XL Tab PO SCH (09:27)
[2017-11-22] MEDS: Pantoprazole 40 mg EC Tab PO SCH (09:28)
--- NOTE | 2017-11-22 17:20 | CT ---
PROCEDURE: CT Abdomen and Pelvis without intravenous contrast HISTORY: Diverticulosis. LLQ abd pain COMPARISON: Unenhanced abdomen pelvis CT examination 07/26/2017. TECHNIQUE: Helical CT of the abdomen and pelvis was performed without oral or intravenous contrast as per referring physician request. Contrast Dose: None Radiation dose: Total exam DLP = 751.45 mGy-cm. This CT exam was performed using one or more of the following dose reduction techniques: Automated exposure control, adjustment of the mA and/or kV according to patient size, and/or use of iterative reconstruction technique. FINDINGS: LOWER THORAX: Likely fibrotic changes in the bilateral bases once again with borderline lower lobe bronchiectasis noted. No infiltrate, pleural or pericardial effusion appreciated. Small hiatal hernia is again evident. LIVER: Unremarkable. No gross lesion or ductal dilatation. GALLBLADDER AND BILE DUCTS: Trace cholelithiasis is again seen the gallbladder mildly distended but otherwise unremarkable appearing. PANCREAS: Unremarkable. No gross lesion or ductal dilatation. SPLEEN: Unremarkable. ADRENALS: Unremarkable. No mass. KIDNEYS AND URETERS: No obstructive uropathy bilaterally. Minimal perinephric streaky changes are again appreciated which are nonspecific. VASCULATURE: Unremarkable. No aortic aneurysm. BOWEL: The stomach is mildly distended with retained food and scattered colonic diverticular again seen throughout the colon including the sigmoid segment without overt pattern to suggest diverticulitis at this time. Postop changes seen including chain sutures at the distal sigmoid colon. A small umbilical hernia is again appreciate containing a minimal segment of apparent transverse colon which is not obstructed. APPENDIX: Unremarkable. Normal appendix. PERITONEUM: Unremarkable. No free fluid. No free air. LYMPH NODES: Unremarkable. No enlarged lymph nodes. BLADDER: Unremarkable. REPRODUCTIVE: Prior hysterectomy suggested once again. BONES: No acute fracture. OTHER FINDINGS: None. IMPRESSION: 1. Scattered colonic diverticulosis is again appreciated including the sigmoid colon with postop changes noted at the distal sigmoid segment. No acute pattern to suggest diverticulitis at this time. 2. No obstructive uropathy bilaterally. 3. A small umbilical hernia is stable and contains a limited amount transverse colon which does not appear obstructed. 4. Minimal cholelithiasis again seen within a mildly distended gallbladder which is otherwise unremarkable appearing. 5. Prior hysterectomy.
--- NOTE | 2017-11-22 19:00 | CP.PCM.CON ---
History of Present Illness - History of Present Illness History of Present Illness: I was asked to evaluate patient by Dr Nam Patient is a 72 year old female with PMH HTN, CAD s/p HI with subsequent PCI RCA who presents with back pain. The patient states symptoms began 2 days ago and she felt a sharp sensation. When symptoms did not improve she felt the need to come to the ER. She has chronic irritable bowel syndrome. She denies current chest pain. Review of Systems - Constitutional Constitutional: absent: As Per HPI, Anorexia, Chills, Daytime Sleepiness, Excessive Sweating, Fatigue, Fever, Frequent Falls, Headache, Increased Appetite , Lethargy, Malaise, Night Sweats, Snoring, Sleep Apnea, Weight Gain, Weight Loss, Weakness, Other - EENT Eyes: absent: As Per HPI, Blind Spots, Blurred Vision, Change in Vision, Decreased Night Vision, Diplopia, Discharge, Dry Eye, Exophthalmos, Floaters, Irritation, Itchy Eyes, Loss of Peripheral Vision, Pain, Photophobia, Requires Corrective Lenses, Sees Flashes, Spots in Vision, Tunnel Vision, Other Visual Disturbances, Loss of Vision, Other Ears: absent: As Per HPI, Decreased Hearing, Ear Discharge, Ear Pain, Tinnitus, Abnormal Hearing, Disequilibrium, Dizziness, Other Nose/Mouth/Throat: absent: As Per HPI, Epistaxis, Nasal Congestion, Nasal Discharge, Nasal Obstruction, Nasal Trauma, Nose Pain, Post Nasal Drip, Sinus Pain, Sinus Pressure, Bleeding Gums, Change in Voice, Dental Pain, Dry Mouth, Dysphagia, Halitosis, Hoarsness, Lip Swelling, Mouth Lesions, Mouth Pain, Odynophagia, Sore Throat, Throat Swelling, Tongue Swelling, Facial Pain, Neck Pain, Neck Mass, Other - Breasts Breasts: absent: As Per HPI, Change in Shape, Mass, Pain, Nipple Discharge, Nipple Inversion, Skin Changes, Swelling, Other - Cardiovascular Cardiovascular: absent: As Per HPI, Acrocyanosis, Chest Pain, Chest Pain at Rest , Chest Pain with Activity, Claudication, Diaphoresis, Dyspnea, Dyspnea on Exertion, Edema, Irregular Heart Rhythm, Pain Radiating to Arm/Neck/Jaw, Leg Edema, Leg Ulcers, Lightheadedness, Orthopnea, Palpitations, Paroxysmal Nocturnal Dyspnea, Pedal Edema, Radiating Pain, Rapid Heart Rate, Slow Heart Rate, Syncope, Other - Respiratory Respiratory: absent: As Per HPI, Cough, Dyspnea, Hemoptysis, Dyspnea on Exertion , Wheezing, Snoring, Stridor, Pain on Inspiration, Chest Congestion, Excessive Mucous Production, Change in Mucous Color, Pain with Coughing, Other - Gastrointestinal Gastrointestinal: absent: As Per HPI, Abdominal Pain, Belching, Bloating, Change in Bowel Habits, Change in Stool Character, Coffee Ground Emesis, Constipation, Cramping, Diarrhea, Dyspepsia, Dysphagia, Early Satiety, Excessive Flatus, Fecal Incontinence, Heartburn, Hematemesis, Hematochezia, Loose Stools, Melena, Nausea, Odynophagia, Temesmus, Vomiting, Other - Musculoskeletal Musculoskeletal: absent: As Per HPI, Abnormal Gait, Arthralgias, Atrophy, Back Pain, Deformity, Joint Swelling, Limited Range of Motion, Loss of Height, Muscle Cramps, Muscle Weakness, Myalgias, Neck Pain, Numbness, Radiating Pain into Limb, Stiffness, Tingling, Other - Integumentary Integumentary: absent: As Per HPI, Acne, Alopecia, Bleeding Lesions, Change in Hair, Change in Nails, Change in Pigmentation, Changing Lesions, Dry Skin, Erythema, Furuncle, Hirsutism, Lesions, New Lesions, Non-Healing Lesions, Photosensitivity, Pruritus, Rash, Skin Pain, Skin Ulcer, Sores, Striae, Swelling , Unusual Bruising, Wounds, Jaundice, Other - Neurological Neurological: absent: As Per HPI, Abnormal Gait, Abnormal Hearing, Abnormal Movements, Abnormal Speech, Behavioral Changes, Burning Sensations, Confusion, Convulsions, Disequilibrium, Dizziness, Numbness, Focal Weakness, Frequent Falls , Headaches, Lack of Coordination, Loss of Vision, Memory Loss, Paresthesias, Radicular Pain, Restless Legs, Sensory Deficit, Syncope, Tingling, Tremor, Vertigo, Weakness, Other Visual Disturbances, Other - Psychiatric Psychiatric: absent: As Per HPI, Abnormal Sleep Pattern, Anhedonia, Anxiety, Auditory Hallucinations, Behavioral Changes, Change in Appetite, Change in Libido, Confusion, Depression, Difficulty Concentrating, Hallucinations, Homicidal Ideation, Hopelessness, Irritability, Memory Loss, Mood Swings, Panic Attacks, Paranoia, Suicidal Ideation, Visual Hallucinations, Tactile Hallucinations, Other - Endocrine Endocrine: absent: As Per HPI, Change in Body Appearance, Change in Libido, Cold Intolorance, Deepening of Voice, Excessive Sweating, Fatigue, Flushing, Heat Intolorance, Increase in Ring/Shoe/Hat Size, Palpitations, Polydipsia, Polyphagia, Polyuria, Other - Hematologic/Lymphatic Hematologic: absent: As Per HPI, Easy Bleeding, Easy Bruising, Lymphadenopathy, Other Past Patient History - Infectious Disease Hx of Infectious Diseases: None - Tetanus Immunizations Tetanus Immunization: Unknown - Past Medical History & Family History Past Medical History?: Yes - Past Social History Alcohol: None Drugs: Denies - CARDIAC Hx Hypercholesterolemia: Yes Hx Hypertension: Yes - PULMONARY Hx Asthma: Yes Hx Pneumonia: Yes Hx Sleep Apnea: Yes - NEUROLOGICAL Hx Neurological Disorder: No - HEENT Hx HEENT Problems: Yes Hx Cataracts: Yes (BILATERAL) Other/Comment: DETACHED RETINA-RIGHT - RENAL Hx Chronic Kidney Disease: No - ENDOCRINE/METABOLIC Hx Endocrine Disorders: No - HEMATOLOGICAL/ONCOLOGICAL Hx Anemia: Yes - INTEGUMENTARY Hx Dermatological Problems: No - MUSCULOSKELETAL/RHEUMATOLOGICAL Hx Arthritis: Yes (NECK AND BACK) - GASTROINTESTINAL Hx Diverticulitis: Yes - GENITOURINARY/GYNECOLOGICAL Hx Genitourinary Disorders: No Hx Urinary Tract Infection: Yes Other/Comment: Chronic cystitis - PSYCHIATRIC Hx Anxiety: Yes Hx Depression: Yes - SURGICAL HISTORY Hx Surgeries: Yes Hx Cataract Extraction: Yes Hx Eye Surgery: Yes (VINAY CATARACT;DETACHED RETINA) Hx Hysterectomy: Yes Other/Comment: COLON RESECTION. RIGHT CARPAL TUNNEL - ANESTHESIA Hx Anesthesia: Yes Hx Anesthesia Reactions: No Hx Malignant Hyperthermia: No Meds Allergies/Adverse Reactions: Allergies Allergy/AdvReac Type Severity Reaction Status Date / Time ciprofloxacin [From Cipro] Allergy RASH Verified 11/21/17 18:28 ciprofloxacin HCl Allergy RASH Verified 11/21/17 18:28 [From Cipro] iodine Allergy RASH Verified 11/21/17 18:28 ondansetron HCl Allergy ANAPHYLAXIS Verified 11/21/17 18:28 [From Zofran (as hydrochloride)] pneumococcal vaccine Allergy RASH Verified 11/21/17 18:28 hydromorphone HCl AdvReac Intermediate ANAPHYLAXIS Verified 11/21/17 18:28 [From Dilaudid] - Medications Medications: Current Medications Acetaminophen (Tylenol 325mg Tab) 650 mg PO Q6 PRN PRN Reason: Pain, Mild (1-3) Al Hydrox/Mg Hydrox/Simethicone (Maalox Plus 30 Ml) 30 ml PO Q6 PRN PRN Reason: Indigestion / Heartburn Last Admin: 11/22/17 03:58 Dose: 30 ml Aspirin (Ecotrin) 81 mg PO DAILY [facility] Last Admin: 11/22/17 09:27 Dose: 81 mg Atorvastatin Calcium (Lipitor) 20 mg PO DAILY [facility] Last Admin: 11/22/17 09:27 Dose: 20 mg Clopidogrel Bisulfate (Plavix) 75 mg PO DAILY [facility] Fluticasone Propionate (Flonase) 2 spr JOANNA DAILY PRN PRN Reason: Allergy symptoms Hydrochlorothiazide (Microzide) 12.5 mg PO DAILY [facility] Losartan Potassium (Cozaar) 50 mg PO DAILY [facility] Metoprolol Succinate (Toprol Xl) 25 mg PO DAILY [facility] Last Admin: 11/22/17 09:27 Dose: 25 mg Montelukast Sodium (Singulair) 10 mg PO DAILY [facility] Last Admin: 11/22/17 09:29 Dose: 10 mg Oxycodone/Acetaminophen (Percocet 5/325 Mg Tab) 1 tab PO Q4 PRN PRN Reason: Pain, moderate (4-7) Stop: 11/24/17 22:43 Last Admin: 11/21/17 23:21 Dose: 1 tab Pantoprazole Sodium (Protonix Ec Tab) 40 mg PO DAILY [facility] Last Admin: 11/22/17 09:28 Dose: 40 mg Fluticasone/Salmeterol (Advair Diskus 100/50) 1 puff IH Q12 [facility] Last Admin: 11/22/17 09:26 Dose: 1 unit Physical Exam - Constitutional Appears: Non-toxic - Head Exam Head Exam: NORMAL INSPECTION - Eye Exam Eye Exam: Normal appearance - ENT Exam ENT Exam: Mucous Membranes Moist - Neck Exam Neck exam: Positive for: Normal Inspection - Respiratory Exam Respiratory Exam: NORMAL BREATHING PATTERN - Cardiovascular Exam Cardiovascular Exam: REGULAR RHYTHM - GI/Abdominal Exam GI & Abdominal Exam: Normal Bowel Sounds - Rectal Exam Rectal Exam: Deferred - Extremities Exam Extremities exam: Positive for: normal inspection. Negative for: pedal edema - Back Exam Back exam: NORMAL INSPECTION - Neurological Exam Neurological exam: Alert, Oriented x3 - Psychiatric Exam Psychiatric exam: Normal Affect - Skin Skin Exam: Normal Color Results - Vital Signs Recent Vital Signs: Last Vital Signs Temp 98.5 F 11/22/17 15:55 Pulse 62 11/22/17 15:55 Resp 20 11/22/17 15:55 BP 143/76 11/22/17 15:55 Pulse Ox 97 11/22/17 15:55 - Labs Result Diagrams: 11/22/17 04:34 11/22/17 04:34 Labs: Laboratory Results - last 24 hr 11/21/17 11/21/17 11/21/17 20:40 20:40 20:40 WBC 10.0 D RBC 4.90 Hgb 14.7 Hct 44.7 MCV 91.3 D MCH 30.0 MCHC 32.9 L RDW 13.7 Plt Count 187 MPV 8.3 Neut % (Auto) 77.6 H Lymph % (Auto) 12.6 L Dale % (Auto) 8.0 Eos % (Auto) 1.3 Baso % (Auto) 0.5 Neut # 7.7 H Lymph # 1.3 Dale # 0.8 Eos # 0.1 Baso # 0.0 PT 11.1 INR 1.0 APTT 26.9 Sodium 135 Potassium 3.8 Chloride 93 L Carbon Dioxide 32 H Anion Gap 14 BUN 17 Creatinine 0.9 Est GFR ( Amer) > 60 Est GFR (Non-Af Amer) > 60 Random Glucose 124 H Calcium 9.6 Troponin I < 0.0120 NT-Pro-B Natriuret Pep 97.3 11/22/17 11/22/17 11/22/17 04:34 04:34 04:34 WBC 8.4 RBC 4.76 Hgb 14.5 Hct 43.3 MCV 90.9 MCH 30.5 MCHC 33.5 RDW 13.7 Plt Count 184 MPV 8.7 Neut % (Auto) 66.1 Lymph % (Auto) 20.8 Dale % (Auto) 10.2 H Eos % (Auto) 2.3 Baso % (Auto) 0.6 Neut # 5.5 Lymph # 1.7 Dale # 0.9 H Eos # 0.2 Baso # 0.0 PT INR APTT Sodium 135 Potassium 3.7 Chloride 92 L Carbon Dioxide 32 H Anion Gap 15 BUN 16 Creatinine 0.9 Est GFR ( Amer) > 60 Est GFR (Non-Af Amer) > 60 Random Glucose 102 Calcium 9.7 Troponin I < 0.0120 NT-Pro-B Natriuret Pep 11/22/17 17:00 WBC RBC Hgb Hct MCV MCH MCHC RDW Plt Count MPV Neut % (Auto) Lymph % (Auto) Dale % (Auto) Eos % (Auto) Baso % (Auto) Neut # Lymph # Dale # Eos # Baso # PT INR APTT Sodium Potassium Chloride Carbon Dioxide Anion Gap BUN Creatinine Est GFR ( Amer) Est GFR (Non-Af Amer) Random Glucose Calcium Troponin I 0.0140 NT-Pro-B Natriuret Pep Assessment & Plan (1) CAD (coronary artery disease) Assessment and Plan: continue ASA/Plavix. current symptoms do not appear indicative of unstable angina Status: Acute (2) Hypercholesterolemia Assessment and Plan: statin therapy Status: Acute (3) Hypertension Assessment and Plan: blood pressure control Status: Chronic Priority: Medium
[2017-11-23 08:03] VITALS: RESP 14; O2SAT 96
[2017-11-23 08:34] LABS: BLOOD UREA NITROGEN 29 mg/dl (7-17); CALCIUM 9.3 mg/dL (8.4-10.2); GFR AFRICAN-AMERICAN > 60; GFR NON-AFRICAN AMERICAN > 60; MAGNESIUM 1.9 MG/DL (1.6-2.3)
[2017-11-23] MEDS: Fluticasone-Salmeterol 100-50mcg Diskus IH SCH (08:40)
[2017-11-23] MEDS: Metoprolol Succinate 25 mg XL Tab PO SCH (08:42)
[2017-11-23] MEDS: Pantoprazole 40 mg EC Tab PO SCH (08:42)
--- NOTE | 2017-11-23 10:53 | CP.PCM.DIS ---
Provider - Provider Date of Admission: 11/22/17 16:10 Attending physician: Ernesto Nam MD Time Spent in preparation of Discharge (in minutes): 30 Hospital Course - Lab Results Lab Results: Most Recent Lab Values WBC 8.4 K/uL (4.8-10.8) 11/22/17 04:34 RBC 4.76 Mil/uL (3.80-5.20) 11/22/17 04:34 Hgb 14.5 g/dL (12.0-16.0) 11/22/17 04:34 Hct 43.3 % (34.0-47.0) 11/22/17 04:34 MCV 90.9 fl (81.0-99.0) 11/22/17 04:34 MCH 30.5 pg (27.0-31.0) 11/22/17 04:34 MCHC 33.5 g/dL (33.0-37.0) 11/22/17 04:34 RDW 13.7 % (11.5-14.5) 11/22/17 04:34 Plt Count 184 K/uL (130-400) 11/22/17 04:34 MPV 8.7 fl (7.2-11.7) 11/22/17 04:34 Neut % (Auto) 66.1 % (50.0-75.0) 11/22/17 04:34 Lymph % (Auto) 20.8 % (20.0-40.0) 11/22/17 04:34 [place] % (Auto) 10.2 % (0.0-10.0) H 11/22/17 04:34 Eos % (Auto) 2.3 % (0.0-4.0) 11/22/17 04:34 Baso % (Auto) 0.6 % (0.0-2.0) 11/22/17 04:34 Neut # 5.5 K/uL (1.8-7.0) 11/22/17 04:34 Lymph # 1.7 K/uL (1.0-4.3) 11/22/17 04:34 [place] # 0.9 K/uL (0.0-0.8) H 11/22/17 04:34 Eos # 0.2 K/uL (0.0-0.7) 11/22/17 04:34 Baso # 0.0 K/uL (0.0-0.2) 11/22/17 04:34 PT 11.1 Seconds (9.8-13.1) 11/21/17 20:40 INR 1.0 (0.9-1.2) 11/21/17 20:40 APTT 26.9 Seconds (25.6-37.1) 11/21/17 20:40 Sodium 136 mmol/l (132-148) 11/23/17 07:28 Potassium 4.5 MMOL/L (3.6-5.0) 11/23/17 07:28 Chloride 96 mmol/L (98-107) L 11/23/17 07:28 Carbon Dioxide 29 mmol/L (22-30) 11/23/17 07:28 Anion Gap 16 (10-20) 11/23/17 07:28 BUN 29 mg/dl (7-17) H 11/23/17 07:28 Creatinine 0.8 mg/dl (0.7-1.2) 11/23/17 07:28 Est GFR ( Amer) > 60 11/23/17 07:28 Est GFR (Non-Af Amer) > 60 11/23/17 07:28 Random Glucose 339 mg/dL (65-105) H 11/23/17 07:28 Calcium 9.3 mg/dL (8.4-10.2) 11/23/17 07:28 Phosphorus 3.0 mg/dl (2.5-4.5) 11/23/17 07:28 Magnesium 1.9 MG/DL (1.6-2.3) 11/23/17 07:28 Troponin I 0.0140 ng/mL (0.00-0.120) 11/22/17 17:00 NT-Pro-B Natriuret Pep 97.3 pg/ml (0-900) 11/21/17 20:40 - Hospital Course Hospital Course: 72 y/o woman w/ pmh of HTN, HLD, diverticulosis, CAD, STEMI s/p x1 stent in 2016 brought by EMS presents to the ED w/ left chest pressure and left shoulder pain. started 2 days ago, sharp in nature, radiating to left neck and head, constant, not relieved by anything, and worsened w/ movement. Patient also complains of left sided chest pressure similar to pressure when she had PR 3 months ago. Patient took aleve without relief. Patient took tramadol w/ mild relief but had x1 episode of non-bloody/non-bilious vomit. Patient then felt chills and left sided chest pressure. Patient took x3 baby aspirin prior to ED arrival. Patient denies recent trauma or fall. Patient denies headaches, dizziness, SOB, abdominal pain, dysuria, or fever. Patient admitted in telemetry, EKG on admission x 2 normal, trop x [address] [employer] [address] Galvan consulted, recomends c/w aspirin, plavix, chest pain not cardiac origin. Patient yesterday was reporting LLQ abd pain, CT abd, showed diverticulosis w/o diverticulitits. pain subsided, patient asymptomatic today and desires to go home. patient cleared by [employer]. Follow up with Dr Nam. F/u [employer] Diagnosis 1)Left chest pressure - resolved - EKG: normal - Troponin x 3 neg I: <0.0120 -freedom of information officer consult appreciatd 2)Left shoulder pain -resolved - XR left shoulder: degenarative changes OA 3) LLQ abd pain -resolved -CT abd showed diverticulosis, no diverticulitis 4)CAD - STEMI s/p x1 stent 08/2017 - c/w sme medications 5)HTN -controlled -c/w same medications Discharge Exam - Head Exam Head Exam: NORMAL INSPECTION - Eye Exam Eye Exam: Normal appearance - ENT Exam ENT Exam: Mucous Membranes Moist - Respiratory Exam Respiratory Exam: Clear to PA & Lateral. absent: Rales, Rhonchi - Cardiovascular Exam Cardiovascular Exam: REGULAR RHYTHM, +S1, +S2 - GI/Abdominal Exam GI & Abdominal Exam: Normal Bowel Sounds, Soft. absent: Guarding, Rebound, Tenderness - Extremities Exam Extremities exam: normal inspection - Neurological Exam Neurological exam: Alert, Oriented x3 - Psychiatric Exam Psychiatric exam: Normal Affect, Normal Mood - Skin Skin Exam: Intact Discharge Plan - Discharge Medications Prescriptions: Aspirin [Ecotrin] 81 mg PO DAILY #30 tabec - Follow Up Plan Condition: GUARDED Disposition: HOME/ ROUTINE Instructions: Diverticulosis (DC) Additional Instructions: -Follow up with Dr Nam in 7 days. -Continue aspirin, Plavix -Continue same medications at home Referrals: Marcelo Figueroa MD [Staff Provider] -
[2017-11-23 12:23] VITALS: BP 140/76; PULSE 54; TEMP 98
== END 2017-11-23 12:30 | disposition home or self-care (01) | DRG 313 ==
LOC: H.ER 18:18 → H.ERHOLD 20:42 → H.TEL 22:59 → OBSVTOIN 11-22 16:10
PROVIDERS: ADMIT Family Medicine; ATTEND Family Medicine
DX: R07.89 Other chest pain (principal); I25.10 Atherosclerotic heart disease of native coronary artery without angina pectoris; M48.02 Spinal stenosis, cervical region; K57.90 Diverticulosis of intestine, part unspecified, without perforation or abscess without bleeding; E78.00 Pure hypercholesterolemia, unspecified; I10 Essential (primary) hypertension; E78.5 Hyperlipidemia, unspecified; Z88.3 Allergy status to other anti-infective agents; Z91.041 Radiographic dye allergy status; K58.9 Irritable bowel syndrome, unspecified; I25.2 Old myocardial infarction; Z98.61 Coronary angioplasty status; F41.9 Anxiety disorder, unspecified; F32.9 Major depressive disorder, single episode, unspecified; G47.30 Sleep apnea, unspecified; J45.909 Unspecified asthma, uncomplicated; M19.012 Primary osteoarthritis, left shoulder

== ENCOUNTER 2018-07-30 09:00 | Observation (INO) | payer MEDICARE, OTHER ==
[2018-07-30 09:00] VITALS: BMI 27.4
[2018-07-30 10:03] LABS: BASO % 0.8 % (0.0-2.0); EOS # 0.1 K/uL (0.0-0.7); EOS % 2.5 % (0.0-4.0); LYMPH # 1.9 K/uL (1.0-4.3); LYMPH % 36.6 % (20.0-40.0); MEAN CELL VOLUME 91.4 fl (81.0-99.0); MEAN CORPUSCULAR HEMOGLOBIN 32.2 pg (27.0-31.0); MEAN CORPUSCULAR HGB CONC 35.2 g/dL (33.0-37.0); MEAN PLATELET VOLUME 8.5 fl (7.2-11.7); MONO # 0.5 K/uL (0.0-0.8); MONO % 10.3 % (0.0-10.0); NEUT # 2.5 K/uL (1.8-7.0); NEUT % 49.8 % (50.0-75.0); NRBC % 0.1 % (0.0-0.0); RBC 4.96 Mil/uL (3.80-5.20); RED CELL DISTRIBUTION WIDTH 13.8 % (11.5-14.5); WHITE BLOOD COUNT 5.1 K/uL (4.8-10.8)
[2018-07-30 10:18] LABS: BLOOD UREA NITROGEN 16 mg/dl (7-17); CALCIUM 9.9 mg/dL (8.4-10.2); GFR NON-AFRICAN AMERICAN > 60
[2018-07-30 10:30] LABS: B-TYPE NATRIURETIC PEPTIDE 63.3 pg/ml (0-900)
[2018-07-30] MEDS ORDERED: Potassium Chloride 20 mEq ER Tab PO ONE ×2 (10:31→10:36)
[2018-07-30] MEDS ORDERED: Iohexol 300 100 ML IJ ONE (11:08)
[2018-07-30] MEDS ORDERED: Sodium Chloride 0.9% 0 ML IV ONE (11:09)
--- NOTE | 2018-07-30 13:53 | CT ---
Date of service: 07/30/2018 PROCEDURE: CT HEAD WITHOUT CONTRAST. HISTORY: headache COMPARISON: None available. TECHNIQUE: Axial computed tomography images were obtained through the head/brain without intravenous contrast. Radiation dose: Total exam DLP = 854.17 mGy-cm. This CT exam was performed using one or more of the following dose reduction techniques: Automated exposure control, adjustment of the mA and/or kV according to patient size, and/or use of iterative reconstruction technique. FINDINGS: HEMORRHAGE: No intracranial hemorrhage. BRAIN: There are mild chronic microangiopathic changes. There is no mass, mass effect or abnormal extra-axial fluid collection. There is no territorial infarction. The midline sagittal structures are normal. VENTRICLES: There is mild age-related global parenchymal volume loss and proportionate enlargement of the ventricles and cortical sulci. CALVARIUM: There is mild hyperostosis frontalis interna, otherwise the skull base and calvarium are normal. PARANASAL SINUSES: Predominantly clear. MASTOID AIR CELLS: Predominantly clear. OTHER FINDINGS: None. IMPRESSION: No acute intracranial abnormality. Mild chronic microangiopathic changes and mild age-related global parenchymal volume loss.
--- NOTE | 2018-07-30 15:45 | CT ---
Date of service: 07/30/2018 PROCEDURE: CT Abdomen and Pelvis without intravenous contrast HISTORY: LLQ PAIN COMPARISON: 11/22/2017. TECHNIQUE: CT scan of the abdomen and pelvis was performed without administration of intravenous contrast. Oral contrast was not administered. Coronal and sagittal reformatted images were obtained. . Radiation dose: Total exam DLP = 437.90 mGy-cm. This CT exam was performed using one or more of the following dose reduction techniques: Automated exposure control, adjustment of the mA and/or kV according to patient size, and/or use of iterative reconstruction technique. FINDINGS: LOWER THORAX: There is subsegmental atelectasis in the lingula and both lung bases. LIVER: Normal in size. No intrahepatic ductal dilatation. GALLBLADDER AND BILE DUCTS: Cholelithiasis. No biliary dilatation PANCREAS: Normal in size. No ductal dilatation. SPLEEN: Normal in size. ADRENALS: Normal in size. No discrete nodule. KIDNEYS AND URETERS: Normal in size without nephrolithiasis. No hydronephrosis. VASCULATURE: No aortic aneurysm. BOWEL: The small bowel loops are normal in caliber. There are postsurgical changes in the sigmoid colon. There is scattered colonic diverticulosis without CT evidence for acute diverticulitis. No bowel dilatation or wall thickening. No bowel obstruction. APPENDIX: Normal appendix. PERITONEUM: No free fluid. No free air. LYMPH NODES: No enlarged lymph nodes. BLADDER: Well distended and grossly normal in appearance. REPRODUCTIVE: The uterus is surgically absent. BONES: No acute fracture. Within normal limits for the patient's age. OTHER FINDINGS: There is a fat containing umbilical hernia and left paramedian fat containing ventral hernia. IMPRESSION: No acute abdominal or pelvic abnormality. Status post partial sigmoid resection, colonic diverticulosis without CT evidence for acute diverticulitis. Cholelithiasis.
--- NOTE | 2018-07-30 16:03 | ED PDOC ---
HPI: General Adult Time Seen by Provider: 07/30/18 09:22 Chief Complaint (Nursing): Chest Pain Chief Complaint (Provider): Multi-complaints History Per: Patient History/Exam Limitations: no limitations Onset/Duration Of Symptoms: Days Current Symptoms Are (Timing): Still Present Additional Complaint(s): 73 year old female presents to the ER with multiple complaints. Patients reports of LLQ abdominal pain and chills onset for 1 week. Yesterday, she reports of left side back pain radiating to left shoulder and left neck pain. Today, patient has mild chest pain associated with headache and dizziness. She was treated for UTI and her appetite has decreased because she is not eating for drinking well. Denies fever, rectal bleeding or diarrhea. PMD: Dr. Nam and Dr. Rust ([employer] Operator) Past Medical History Reviewed: Historical Data, Nursing Documentation, Vital Signs Vital Signs: Last Vital Signs Temp 97.7 F 07/31/18 08:10 Pulse 69 07/31/18 09:25 Resp 18 07/31/18 08:10 BP 137/69 07/31/18 09:25 Pulse Ox 96 07/31/18 08:10 - Medical History PMH: Anemia, Anxiety, Arthritis (NECK AND BACK), Asthma, CAD (with stent x1), Depression, Diverticulitis, HTN, Hypercholesterolemia, Pneumonia, Sleep Apnea Denies: HIV, Chronic Kidney Disease - Surgical History Other surgeries: Hysterectomy - Family History Family History: States: Unknown Family Hx - Social History Current smoker - smoking cessation education provided: No Alcohol: None Drugs: Denies - Immunization History Hx Influenza Vaccination: No Hx Pneumococcal Vaccination: No - Home Medications Home Medications: Ambulatory Orders Medication Instructions Recorded ALPRAZolam [Xanax] 0.25 mg PO Q12 PRN 12/16/15 Budesonide/Formoterol Fumarate 2 puff IH Q12 07/26/17 [Symbicort 80-4.5 Mcg Inhaler] Gabapentin Enacarbil [Horizant] 300 mg PO HS PRN 07/26/17 Aspirin [Ecotrin] 81 mg PO DAILY #30 tabec 11/23/17 Clopidogrel [Plavix] 75 mg PO DAILY tab 11/23/17 Amoxicillin [Amoxil 250 mg Cap] 250 mg PO Q8 07/30/18 Cetirizine HCl [Aller-Hellen] 10 mg PO DAILY PRN 07/30/18 Chlorthalidone [Hygroton] 25 mg PO DAILY 07/30/18 Rosuvastatin Calcium [Crestor] 10 mg PO HS 07/30/18 Telmisartan/Hydrochlorothiazid 1 tab PO DAILY 07/30/18 [Micardis Hct 40-12.5 mg Tablet] tiZANidine [Zanaflex] 8 mg PO HS PRN 07/30/18 Fluconazole [Diflucan] 150 mg PO Q72H #2 tab 07/31/18 Lactulose [Constulose] 10 gm PO HS PRN #200 ml 07/31/18 - Allergies Allergies/Adverse Reactions: Allergies Allergy/AdvReac Type Severity Reaction Status Date / Time ciprofloxacin [From Cipro] Allergy RASH Verified 07/30/18 09:33 ciprofloxacin HCl Allergy RASH Verified 07/30/18 09:33 [From Cipro] iodine Allergy RASH Verified 07/30/18 09:33 ondansetron HCl Allergy ANAPHYLAXIS Verified 07/30/18 09:33 [From Zofran (as hydrochloride)] pneumococcal vaccine Allergy RASH Verified 07/30/18 09:33 hydromorphone HCl AdvReac Intermediate ANAPHYLAXIS Verified 07/30/18 09:33 [From Dilaudid] Review of Systems ROS Statement: Except As Marked, All Systems Reviewed And Found Negative Constitutional: Positive for: Chills. Negative for: Fever Cardiovascular: Positive for: Chest Pain Gastrointestinal: Positive for: Abdominal Pain (LLQ). Negative for: Diarrhea, Rectal Pain, Other (rectal bleeding) Musculoskeletal: Positive for: Neck Pain (left side), Arm Pain (left side), Back Pain (left side) Neurological: Positive for: Headache, Dizziness Physical Exam - Reviewed Nursing Documentation Reviewed: Yes Vital Signs Reviewed: Yes - Physical Exam Appears: Positive for: Non-toxic, No Acute Distress Head Exam: Positive for: ATRAUMATIC, NORMAL INSPECTION, NORMOCEPHALIC Skin: Positive for: Normal Color, Warm, Dry. Negative for: Rash Eye Exam: Positive for: EOMI, Normal appearance, PERRL ENT: Positive for: Normal ENT Inspection Neck: Positive for: Normal, Painless ROM, Supple. Negative for: Decreased ROM Cardiovascular/Chest: Positive for: Regular Rate, Rhythm. Negative for: Murmur Respiratory: Positive for: Normal Breath Sounds. Negative for: Decreased Breath Sounds, Wheezing, Respiratory Distress Gastrointestinal/Abdominal: Positive for: Soft, Tenderness (LLQ). Negative for : Guarding, Rebound Back: Positive for: Normal Inspection. Negative for: L CVA Tenderness, R CVA Tenderness Extremity: Positive for: Normal ROM. Negative for: Tenderness, Pedal Edema, Deformity Neurologic/Psych: Positive for: Alert, Oriented (x3). Negative for: Motor/ Sensory Deficits - Laboratory Results Result Diagrams: 07/31/18 05:39 07/31/18 05:39 - ECG O2 Sat by Pulse Oximetry: 99 (RA) Pulse Ox Interpretation: Normal Medical Decision Making Medical Decision Making: Time: 945 Initial Impression: chest pain, back pain, headache, dizziness, LLQ abdominal pain Differential Diagnosis includes but is not limited to: ACS, musculoskeletal pain r/o diverticulitis Initial Plan: --EKG --B-type Natriuretic Peptide --BMP --Troponin I --CBC w/ Differential --D Dime [CAOG] --[employer]orer --Ultram 50mg --Toradol 15mg --Reevaluation Time: 1030 --Abdomen & Pelvis w/o PO or IV Cont [CT] --Head w/o Contrast [CT] --Potassium Chloride 20meq --ED Urine Dipstick Time: 1538 PROCEDURE: CT Abdomen and Pelvis without intravenous contrast HISTORY: LLQ PAIN COMPARISON: 11/22/2017. TECHNIQUE: CT scan of the abdomen and pelvis was performed without administration of intravenous contrast. Oral contrast was not administered. Coronal and sagittal reformatted images were obtained. . Radiation dose: Total exam DLP = 437.90 mGy-cm. This CT exam was performed using one or more of the following dose reduction techniques: Automated exposure control, adjustment of the mA and/or kV according to patient size, and/or use of iterative reconstruction technique. FINDINGS: LOWER THORAX: There is subsegmental atelectasis in the lingula and both lung bases. LIVER: Normal in size. No intrahepatic ductal dilatation. GALLBLADDER AND BILE DUCTS: Cholelithiasis. No biliary dilatation PANCREAS: Normal in size. No ductal dilatation. SPLEEN: Normal in size. ADRENALS: Normal in size. No discrete nodule. KIDNEYS AND URETERS: Normal in size without nephrolithiasis. No hydronephrosis. VASCULATURE: No aortic aneurysm. BOWEL: The small bowel loops are normal in caliber. There are postsurgical changes in the sigmoid colon. There is scattered colonic diverticulosis without CT evidence for acute diverticulitis. No bowel dilatation or wall thickening. No bowel obstruction. APPENDIX: Normal appendix. PERITONEUM: No free fluid. No free air. LYMPH NODES: No enlarged lymph nodes. BLADDER: Well distended and grossly normal in appearance. REPRODUCTIVE: The uterus is surgically absent. BONES: No acute fracture. Within normal limits for the patient's age. OTHER FINDINGS: There is a fat containing umbilical hernia and left paramedian fat containing ventral hernia. IMPRESSION: No acute abdominal or pelvic abnormality. Status post partial sigmoid resection, colonic diverticulosis without CT evidence for acute diverticulitis. Cholelithiasis. Time: 1343 --Tylenol 650mg Time 1351 PROCEDURE: CT HEAD WITHOUT CONTRAST. HISTORY: headache COMPARISON: None available. TECHNIQUE: Axial computed tomography images were obtained through the head/brain without intravenous contrast. Radiation dose: Total exam DLP = 854.17 mGy-cm. This CT exam was performed using one or more of the following dose reduction techniques: Automated exposure control, adjustment of the mA and/or kV according to patient size, and/or use of iterative reconstruction technique. FINDINGS: HEMORRHAGE: No intracranial hemorrhage. BRAIN: There are mild chronic microangiopathic changes. There is no mass, mass effect or abnormal extra-axial fluid collection. There is no territorial infarction. The midline sagittal structures are normal. VENTRICLES: There is mild age-related global parenchymal volume loss and proportionate enlargement of the ventricles and cortical sulci. CALVARIUM: There is mild hyperostosis frontalis interna, otherwise the skull base and calvarium are normal. PARANASAL SINUSES: Predominantly clear. MASTOID AIR CELLS: Predominantly clear. OTHER FINDINGS: None. IMPRESSION: No acute intracranial abnormality. Mild chronic microangiopathic changes and mild age-related global parenchymal volume loss. Scribe Attestation: Documented by Holly Valentine, acting as a gerson Osborne MD Provider Scribe Attestation: All medical record entries made by the Scribe were at my direction and personally dictated by me. I have reviewed the chart and agree that the record accurately reflects my personal performance of the history, physical exam, medical decision making, and the department course for this patient. I have also personally directed, reviewed, and agree with the discharge instructions and disposition. Disposition - Clinical Impression Clinical Impression: Acute chest pain, Pre-syncope, Abdominal pain, Back pain, Headache - Patient ED Disposition Is Patient to be Admitted: Yes Discussed With : Joao Zambrano Doctor Will See Patient In The: ED Counseled Patient/Family Regarding: Studies Performed, Diagnosis - Disposition Disposition Time: 15:19 Condition: FAIR - Pt Status Changed To: Hospital Disposition Of: Observation - POA Present On Arrival: None PREM Risk Score for UA/NSTEMI - PREM Risk Score Age > 64: YES 3 or more CAD Risk Factors: YES Known CAD (Stenosis greater than 50%): YES Aspirin use in past 7 days: NO Severe Angina: NO EKG ST changes greater than 0.5mm: NO Positive Cardiac Marker: NO PREM Score: 3 % risk at 14 days of: all cause mortality, new or recurrent [place], or severe recurrent ischemia requiring urgen revascularization: 13%
--- NOTE | 2018-07-30 16:14 | CP.PCM.HP ---
History of Present Illness - History of Present Illness History of Present Illness: 72 yo woman with history of HTN, HLD, diverticulosis s/p sigmoid resection 8 years ago, CAD, STEMI s/p 1 stent in 08/[address] Rust presented to the ED because of chest pain and left neck pain. She states that the chest pain began this morning, substernal in location and non-radiating and is associated with left neck and upper back pain. She reports that with the chest and neck pain, she felt dizzy and lightheaded this morning. She reports that she when she called EMS. She reports that the past 2 days she has been feeling weak and has had nausea and attributes it to taking amoxicillin daily for one week (prescribed for recurrent UTI's by her urologist Dr. Bellamy). Currently, she reports that she has no chest pain or pressure and states that she is having more left neck and upper back pain. Patient states that she feels her left neck muscles are tight. She denies shortness of breath, Loc, fevers, falls , N/V, dysuria, frequency and urgency. ED course: Vitals: 98.4 F, 71 bpm, 160/78 mm Hg, resp 17, O2 99% RA CBC: 5.1> 16/45 <209 ; BMP: 137/3.3, 99/29, 16/0.8, glucose 103, pro-BNP: 63.3 ; Troponin I: <0.0120 (negative) ; PTT: 26.9 ; PT: 11.1 ; INR: 1.0 ; D-dimer < 200 EKG: NSR, old infarct, no acute ST elevation/depression, no widened QT, QRS, IL CT head: No intracranial abnormalities Ct abdomen/ pelvis: s/p partial sigmoid resection; colonic diverticulosis without CT evidence of acute diverticulitis; cholelithiasis. PMD: Dr Pollack. Instrument Room Technician: Dr. Rust Urologist: Dr. Bellamy Allergies: Anaphylaxis to Dilaudid. Ciprofloxacin, Iodine, Zofran. NO food allergies. PMHx: Chronic constipation, Diverticulosis, Asthma and HTN. meds: see medlist PSHx: Hysterectomy in , Sigmoid Colectomy in 2012 due to diverticulitis. FamHx: Non-Contributory SOC: denies smoking, alcohol, and illegal drugs. ROS: 12 points assessed and negative unless otherwise reported in HPI Present on Admission - Present on Admission Any Indicators Present on Admission: No History of DVT/PE: No History of Uncontrolled Diabetes: No Urinary Catheter: No Decubitus Ulcer Present: No Review of Systems - Constitutional Constitutional: As Per HPI Past Patient History - Infectious Disease Hx of Infectious Diseases: None - Tetanus Immunizations Tetanus Immunization: Unknown - Past Medical History & Family History Past Medical History?: Yes - Past Social History Alcohol: None Drugs: Denies - CARDIAC Hx Hypercholesterolemia: Yes Hx Hypertension: Yes - PULMONARY Hx Asthma: Yes Hx Pneumonia: Yes Hx Sleep Apnea: Yes - NEUROLOGICAL Hx Neurological Disorder: No - HEENT Hx HEENT Problems: Yes Hx Cataracts: Yes (BILATERAL) Other/Comment: DETACHED RETINA-RIGHT - RENAL Hx Chronic Kidney Disease: No - ENDOCRINE/METABOLIC Hx Endocrine Disorders: No - HEMATOLOGICAL/ONCOLOGICAL Hx Anemia: Yes Hx Human Immunodeficiency Virus (HIV): No - INTEGUMENTARY Hx Dermatological Problems: No - MUSCULOSKELETAL/RHEUMATOLOGICAL Hx Arthritis: Yes (NECK AND BACK) - GASTROINTESTINAL Hx Diverticulitis: Yes - GENITOURINARY/GYNECOLOGICAL Hx Genitourinary Disorders: No Hx Urinary Tract Infection: Yes Other/Comment: Chronic cystitis - PSYCHIATRIC Hx Anxiety: Yes Hx Depression: Yes - SURGICAL HISTORY Hx Surgeries: Yes Hx Cataract Extraction: Yes Hx Eye Surgery: Yes (VINAY CATARACT;DETACHED RETINA) Hx Hysterectomy: Yes Other/Comment: COLON RESECTION. RIGHT CARPAL TUNNEL - ANESTHESIA Hx Anesthesia: Yes Hx Anesthesia Reactions: No Hx Malignant Hyperthermia: No Meds Allergies/Adverse Reactions: Allergies Allergy/AdvReac Type Severity Reaction Status Date / Time ciprofloxacin [From Cipro] Allergy RASH Verified 07/30/18 09:33 ciprofloxacin HCl Allergy RASH Verified 07/30/18 09:33 [From Cipro] iodine Allergy RASH Verified 07/30/18 09:33 ondansetron HCl Allergy ANAPHYLAXIS Verified 07/30/18 09:33 [From Zofran (as hydrochloride)] pneumococcal vaccine Allergy RASH Verified 07/30/18 09:33 hydromorphone HCl AdvReac Intermediate ANAPHYLAXIS Verified 07/30/18 09:33 [From Dilaudid] Physical Exam - Constitutional Appears: Well, Non-toxic, No Acute Distress - Head Exam Head Exam: NORMAL INSPECTION - Eye Exam Eye Exam: Normal appearance - ENT Exam ENT Exam: Mucous Membranes Moist, Normal Exam - Neck Exam Neck exam: Positive for: Normal Inspection - Respiratory Exam Respiratory Exam: Clear to Auscultation Bilateral, NORMAL BREATHING PATTERN. absent: Chest Wall Tenderness, Rales, Rhonchi, Wheezes - Cardiovascular Exam Cardiovascular Exam: REGULAR RHYTHM, RRR, +S1, +S2, Systolic Murmur - GI/Abdominal Exam GI & Abdominal Exam: Normal Bowel Sounds, Soft, Tenderness (tenderless in left lower quadrant. ). absent: Distended, Firm, Guarding, Rebound - Rectal Exam Additional comments: + 3 dried up lesions- patient reports from previous shingles infection 2 weeks ago. - Extremities Exam Extremities exam: Positive for: normal inspection, pedal pulses present (+ 2 dorsalis pedis ). Negative for: calf tenderness, joint swelling, pedal edema Additional comments: Pain located at the neck and upper back on lifting left arm. Tense neck on palpation. - Neurological Exam Neurological exam: Alert, Oriented x3 - Psychiatric Exam Psychiatric exam: Normal Affect, Normal Mood - Skin Skin Exam: Dry, Intact, Normal Color, Warm Results - Vital Signs Recent Vital Signs: Last Vital Signs Temp 98.4 F 07/30/18 09:42 Pulse 71 07/30/18 09:28 Resp 16 07/30/18 09:04 BP 160/78 H 07/30/18 09:04 Pulse Ox 99 07/30/18 16:09 - Labs Result Diagrams: 07/30/18 09:57 07/30/18 09:57 Labs: Laboratory Results - last 24 hr 07/30/18 07/30/18 07/30/18 09:57 09:57 09:57 WBC 5.1 RBC 4.96 Hgb 16.0 Hct 45.3 MCV 91.4 MCH 32.2 H MCHC 35.2 RDW 13.8 Plt Count 209 MPV 8.5 Neut % (Auto) 49.8 L Lymph % (Auto) 36.6 Beaver % (Auto) 10.3 H Eos % (Auto) 2.5 Baso % (Auto) 0.8 Neut # (Auto) 2.5 Lymph # (Auto) 1.9 [place]aver # (Auto) 0.5 Eos # (Auto) 0.1 Baso # (Auto) 0.0 D-Dimer, Quantitative < 200 Sodium 137 Potassium 3.3 L Chloride 99 Carbon Dioxide 29 Anion Gap 12 BUN 16 Creatinine 0.8 Est GFR ( Amer) > 60 Est GFR (Non-Af Amer) > 60 Random Glucose 103 Calcium 9.9 Troponin I < 0.0120 NT-Pro-B Natriuret Pep 63.3 Assessment & Plan - Assessment and Plan (Free Text) Assessment: 72 yo woman with history of HTN, HLD, diverticulosis s/p sigmoid resection 8 years ago, CAD, STEMI s/p 1 stent in 08/[address] Rust presented to the ED because of chest pain and left neck pain. Given physical exam findings and clinical picture patient most likely has left neck muscle spasms. Patient admitted to r/o ACS causes. Plan: 1. Chest pain - Acute - Troponins x1 - negative - D-dimer < 200 : Rule out p.e. - EKG: evidence of previous inferior infarct, Normal sinus rhythm. - CT head: no intracranial abnormalities - CT abdomen and pelvis: s/p partial sigmoid resection; colonic diverticulosis without CT evidence of acute diverticulosis. Cholelithiasis. - F/U Troponins x2 - F/U CBC 2. Neck muscle spasms: - Chronic - Continue home medications- Tizanidine 8mg po HS. 3. Dizziness - ACute, resolved - possibly secondary to polypharmacy for hypertension - F/U TSH, B12, RPR, Vitamin D - Monitory vitals. 4. Hypertension: - Chronic - Continue current medications - Monitor Blood pressure 5. History of Diverticulitis- Constipation - Chronic - Start Senakot 6. DVT prophylaxis - Lovenox 40mg SC daily.
[2018-07-30] MEDS ORDERED: GABAPENTIN ENACARBIL 300 MG PO PRN (17:06)
[2018-07-30 18:32] LABS: SQUAMOUS EPITHIAL 3 /hpf (0-5); URINE BACTERIA OCC (<OCC); URINE BILIRUBIN NEGATIVE (NEGATIVE); URINE BLOOD NEGATIVE (NEGATIVE); URINE CLARITY CLOUDY (Clear); URINE COLOR YELLOW (YELLOW); URINE GLUCOSE (UA) NEG (Normal); URINE LEUKOCYTE ESTERASE TRACE Leu/uL (Negative); URINE PROTEIN 30 mg/dL (NEGATIVE); URINE UROBILINOGEN 0.2-1.0 mg/dL (0.2-1.0)
[2018-07-30 20:23] VITALS: RESP 18
[2018-07-30] MEDS: Fluticasone-Salmeterol 100-50mcg Diskus IH SCH (21:32)
[2018-07-30] MEDS: Benzocaine/Menthol (Cepacol) Lozenge PO PRN (21:36)
[2018-07-30] MEDS ORDERED: Docusate-Senna 50 mg-8.6 mg Tab PO SCH (22:00)
--- NOTE | 2018-07-30 22:54 | CARD ---
APPROVED REPORT Date of service: 07/30/2018 EKG Measurement Heart [id number] <Conclusion> Normal sinus rhythm Inferior infarct, age undetermined Abnormal ECG
[2018-07-31 05:54] LABS: HEMOGLOBIN 14.6 g/dL (12.0-16.0); MEAN CELL VOLUME 92.7 fl (81.0-99.0); MEAN CORPUSCULAR HEMOGLOBIN 31.8 pg (27.0-31.0); MEAN CORPUSCULAR HGB CONC 34.3 g/dL (33.0-37.0); RBC 4.59 Mil/uL (3.80-5.20); RED CELL DISTRIBUTION WIDTH 13.5 % (11.5-14.5); WHITE BLOOD COUNT 6.1 K/uL (4.8-10.8)
[2018-07-31 06:05] LABS: BLOOD UREA NITROGEN 19 mg/dl (7-17); CALCIUM 9.2 mg/dL (8.4-10.2); GFR NON-AFRICAN AMERICAN > 60
[2018-07-31 08:10] VITALS: BP 137/69; PULSE 69; TEMP 97.7
[2018-07-31] MEDS ORDERED: Fluconazole 150 MG TAB PO SCH (08:45)
[2018-07-31] MEDS ORDERED: Enoxaparin 40 mg Syringe SC SCH (09:00)
[2018-07-31] MEDS ORDERED: [UNRECOGNIZED DRUG - OTHER] PO SCH (09:00)
[2018-07-31] MEDS: Fluticasone-Salmeterol 100-50mcg Diskus IH SCH (09:23)
[2018-07-31] MEDS: Benzocaine/Menthol (Cepacol) Lozenge PO PRN (09:25)
--- NOTE | 2018-07-31 10:14 | CP.PCM.DIS ---
Provider - Provider Date of Admission: 07/30/18 15:19 Attending physician: Joao Zambrano MD Primary care physician: Dr. Nam Time Spent in preparation of Discharge (in minutes): 30 Diagnosis - Discharge Diagnosis (1) Neck pain on left side Status: Acute Comment: Resolved. (2) Chest pain Status: Acute Comment: Resolved. Troponins negative. 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 NSR. Hospital Course - Lab Results Lab Results: Most Recent Lab Values WBC 6.1 K/uL (4.8-10.8) 07/31/18 05:39 RBC 4.59 Mil/uL (3.80-5.20) 07/31/18 05:39 Hgb 14.6 g/dL (12.0-16.0) 07/31/18 05:39 Hct 42.6 % (34.0-47.0) 07/31/18 05:39 MCV 92.7 fl (81.0-99.0) 07/31/18 05:39 MCH 31.8 pg (27.0-31.0) H 07/31/18 05:39 MCHC 34.3 g/dL (33.0-37.0) 07/31/18 05:39 RDW 13.5 % (11.5-14.5) 07/31/18 05:39 Plt Count 188 K/uL (130-400) 07/31/18 05:39 MPV 8.5 fl (7.2-11.7) 07/30/18 09:57 Neut % (Auto) 49.8 % (50.0-75.0) L 07/30/18 09:57 Lymph % (Auto) 36.6 % (20.0-40.0) 07/30/18 09:57 [place] % (Auto) 10.3 % (0.0-10.0) H 07/30/18 09:57 Eos % (Auto) 2.5 % (0.0-4.0) 07/30/18 09:57 Baso % (Auto) 0.8 % (0.0-2.0) 07/30/18 09:57 Neut # (Auto) 2.5 K/uL (1.8-7.0) 07/30/18 09:57 Lymph # (Auto) 1.9 K/uL (1.0-4.3) 07/30/18 09:57 [place] # (Auto) 0.5 K/uL (0.0-0.8) 07/30/18 09:57 Eos # (Auto) 0.1 K/uL (0.0-0.7) 07/30/18 09:57 Baso # (Auto) 0.0 K/uL (0.0-0.2) 07/30/18 09:57 D-Dimer, Quantitative < 200 ng/mlDDU (0-230) 07/30/18 09:57 Sodium 136 mmol/l (132-148) 07/31/18 05:39 Potassium 3.6 MMOL/L (3.6-5.0) 07/31/18 05:39 Chloride 101 mmol/L (98-107) 07/31/18 05:39 Carbon Dioxide 28 mmol/L (22-30) 07/31/18 05:39 Anion Gap 11 (10-20) 07/31/18 05:39 BUN 19 mg/dl (7-17) H 07/31/18 05:39 Creatinine 0.7 mg/dl (0.7-1.2) 07/31/18 05:39 Est GFR ( Amer) > 60 07/31/18 05:39 Est GFR (Non-Af Amer) > 60 07/31/18 05:39 Random Glucose 101 mg/dL (65-105) 07/31/18 05:39 Calcium 9.2 mg/dL (8.4-10.2) 07/31/18 05:39 Troponin I < 0.0120 ng/mL (0.00-0.120) 07/31/18 02:15 NT-Pro-B Natriuret Pep 63.3 pg/ml (0-900) 07/30/18 09:57 Vitamin B12 559 pg/mL (239-931) 07/30/18 18:13 25-OH Vitamin D Total 30.1 NG/ML (30.0-100.0) 07/30/18 18:18 TSH 3rd Generation 2.68 mIU/ML (0.46-4.68) 07/30/18 18:13 Urine Color Yellow (YELLOW) 07/30/18 18:13 Urine Clarity Cloudy (Clear) 07/30/18 18:13 Urine pH 8.0 (5.0-8.0) 07/30/18 18:13 Ur Specific [place] 1.013 (1.003-1.030) 07/30/18 18:13 Urine Protein 30 mg/dL (NEGATIVE) 07/30/18 18:13 Urine Glucose (UA) Neg mg/dL (Normal) 07/30/18 18:13 Urine Ketones Negative mg/dL (NEGATIVE) 07/30/18 18:13 Urine Blood Negative (NEGATIVE) 07/30/18 18:13 Urine Nitrate Negative (NEGATIVE) 07/30/18 18:13 Urine Bilirubin Negative (NEGATIVE) 07/30/18 18:13 Urine Urobilinogen 0.2-1.0 mg/dL (0.2-1.0) 07/30/18 18:13 Ur Leukocyte Esterase Trace [place]/uL (Negative) 07/30/18 18:13 Urine RBC (Auto) 2 /hpf (0-3) 07/30/18 18:13 Urine Microscopic WBC 2 /hpf (0-5) 07/30/18 18:13 Ur Squamous Epith Cells 3 /hpf (0-5) 07/30/18 18:13 Urine Bacteria Occ (<OCC) H 07/30/18 18:13 RPR Nonreactive (NONREACTIVE) 07/30/18 18:13 - Hospital Course Hospital Course: 72 yo woman with history of HTN, HLD, diverticulosis s/p sigmoid resection 8 years ago, CAD, STEMI s/p 1 stent in 08/[address] Rust presented to the ED because of chest pain and left neck pain. She states that the chest pain began this morning, substernal in location and non-radiating and is associated with left neck and upper back pain. She reports that with the chest and neck pain, she felt dizzy and lightheaded this morning. She reports that she when she called EMS. She reports that the past 2 days she has been feeling weak and has had nausea and attributes it to taking amoxicillin daily for one week (prescribed for recurrent UTI's by her urologist Dr. Bellamy). Currently, she reports that she has no chest pain or pressure and states that she is having more left neck and upper back pain. Patient states that she feels her left neck muscles are tight. She denies shortness of breath, Loc, fevers, falls , N/V, dysuria, frequency and urgency. ED course: Vitals: 98.4 F, 71 bpm, 160/78 mm Hg, resp 17, O2 99% RA CBC: 5.1> 16/45 <209 ; BMP: 137/3.3, 99/29, 16/0.8, glucose 103, pro-BNP: 63.3 ; Troponin I: <0.0120 (negative) ; PTT: 26.9 ; PT: 11.1 ; INR: 1.0 ; D-dimer < 200 EKG: NSR, old infarct, no acute ST elevation/depression, no widened QT, QRS, NH CT head: No intracranial abnormalities Ct abdomen/ pelvis: s/p partial sigmoid resection; colonic diverticulosis without CT evidence of acute diverticulitis; cholelithiasis. Floor Course: Patient was admitted onto telemetry for observation. No cardiac events occured on the floor. Patient was vitally stable on the floor. Both chest pain and left neck pain had resolved. Patient had complaint of vaginal pruritis of which she states is a yeast infection. She reported she typically gets yeast infections every-time she takes antibiotics. Patient's U/A was reviewed as well and noted to have occult bacteria. Patient denied dysuria, frequency and urgency. Patient was prescribed Fluconazole 150mg po Q72H given previous yeast infection history. 1. Chest pain- Troponins x3 were negative. EKG: evidence of previous inferior infarct, Normal sinus rhythm. CT head showed no evidence of intracranial abnormalities. - P.E was ruled out via D- dimer of <200. 2. Neck muscle spasms, patient was treated with her home medication of Tizanidine 8mg po HS. Resolved. 3. Dizziness- resolved- TSH, B12, RPR, and vitamin D were all in normal limits. 4. Hypertension, stable on the floor with patients home medications. 5. History of Diverticulitis- Constipation, patient will be sent a prescription for lactulose. Discharge Exam - Head Exam Head Exam: NORMAL INSPECTION - Eye Exam Eye Exam: Normal appearance - Respiratory Exam Respiratory Exam: NORMAL BREATHING PATTERN, UNREMARKABLE. absent: Chest Wall Tenderness, Decreased Breath Sounds, Rales, Rhonchi, Wheezes, Respiratory Distress - Cardiovascular Exam Cardiovascular Exam: REGULAR RHYTHM, RRR, +S1, +S2, Systolic Murmur. absent: Clicks, Gallop, JVD, Rubs, +S4 - GI/Abdominal Exam GI & Abdominal Exam: Normal Bowel Sounds, Soft. absent: Distended, Firm, Guarding, Pulsatile Mass, Rebound, Rigid, Tenderness - Extremities Exam Extremities exam: normal inspection, pedal pulses present (+2 dorsalis pedis bilaterally.) - Neurological Exam Neurological exam: Alert, Oriented x3 - Psychiatric Exam Psychiatric exam: Normal Affect, Normal Mood - Skin Skin Exam: Dry, Intact, Normal Color, Warm Discharge Plan - Discharge Medications Prescriptions: Fluconazole [Diflucan] 150 mg PO Q72H #2 tab Lactulose [Constulose] 10 gm PO HS PRN #200 ml PRN Reason: Constipation - Follow Up Plan Condition: GOOD Disposition: HOME/ ROUTINE Patient education suggested?: Yes Additional Instructions: Follow up with Primary MD in 1 week Attend follow up with Urologist, Dr. Bellamy- scheduled in 1 week and a half. Prescription sent to Pharmacy for Fluconazole 150mg Q72H for Yeast infection. Continue taking Amoxicillin medication at Dr. Bellamy, the urologist, sent.
[2018-08-01 21:06] VITALS: O2SAT 99
== END 2018-07-31 12:18 | disposition home or self-care (01) ==
LOC: H.ER 09:00 → H.ERHOLD 15:19 → H.TEL 18:23
PROVIDERS: ADMIT Hospitalist; ATTEND Hospitalist
DX: R07.89 Other chest pain (principal); M54.2 Cervicalgia; R42 Dizziness and giddiness; R51 Headache; N30.20 Other chronic cystitis without hematuria; I25.10 Atherosclerotic heart disease of native coronary artery without angina pectoris; I10 Essential (primary) hypertension; L29.8 Other pruritus; I25.2 Old myocardial infarction; K57.30 Diverticulosis of large intestine without perforation or abscess without bleeding; E78.5 Hyperlipidemia, unspecified; E78.00 Pure hypercholesterolemia, unspecified; G47.30 Sleep apnea, unspecified; J45.909 Unspecified asthma, uncomplicated; Z95.5 Presence of coronary angioplasty implant and graft; F41.9 Anxiety disorder, unspecified; K59.09 Other constipation; M19.90 Unspecified osteoarthritis, unspecified site; Z87.440 Personal history of urinary (tract) infections; Z79.82 Long term (current) use of aspirin; Z79.02 Long term (current) use of antithrombotics/antiplatelets; Z87.01 Personal history of pneumonia (recurrent); Z88.1 Allergy status to other antibiotic agents; Z91.041 Radiographic dye allergy status
CPT/HCPCS: 36415; 70450; 74176; 80048; 81003; 82306; 82607; 83880; 84443; 84484; 85025; 85027; 85378; 86592; 93005; 99285; G0378

== ENCOUNTER 2018-09-17 07:30 | Emergency (ER) | payer MEDICARE, OTHER ==
[2018-09-17 07:34] VITALS: BMI 28.3
[2018-09-17 09:09] LABS: BASO % 0.6 % (0.0-2.0); EOS # 0.1 K/uL (0.0-0.7); EOS % 1.4 % (0.0-4.0); HEMOGLOBIN 14.9 g/dL (12.0-16.0); LYMPH # 1.7 K/uL (1.0-4.3); LYMPH % 26.1 % (20.0-40.0); MEAN CELL VOLUME 94.4 fl (81.0-99.0); MEAN CORPUSCULAR HEMOGLOBIN 32.1 pg (27.0-31.0); MEAN CORPUSCULAR HGB CONC 34.1 g/dL (33.0-37.0); MEAN PLATELET VOLUME 8.2 fl (7.2-11.7); MONO # 0.6 K/uL (0.0-0.8); MONO % 8.6 % (0.0-10.0); NEUT # 4.1 K/uL (1.8-7.0); NEUT % 63.3 % (50.0-75.0); NRBC % 0.1 % (0.0-0.0); RBC 4.62 Mil/uL (3.80-5.20); RED CELL DISTRIBUTION WIDTH 13.1 % (11.5-14.5); WHITE BLOOD COUNT 6.5 K/uL (4.8-10.8)
[2018-09-17 09:18] LABS: BLOOD UREA NITROGEN 13 mg/dl (7-17); CALCIUM 9.4 mg/dL (8.4-10.2); GFR NON-AFRICAN AMERICAN > 60
[2018-09-17] MEDS ORDERED: Potassium Chloride 20 mEq ER Tab PO ONE ×2 (09:20→09:54)
--- NOTE | 2018-09-17 10:13 | CT ---
Date of service: 09/17/2018 PROCEDURE: CT Abdomen and Pelvis without intravenous contrast HISTORY: LLQ pain diarrhea COMPARISON: TECHNIQUE: Technique. Contrast dose: Radiation dose: Total exam DLP = 744.25 mGy-cm. This CT exam was performed using one or more of the following dose reduction techniques: Automated exposure control, adjustment of the mA and/or kV according to patient size, and/or use of iterative reconstruction technique. FINDINGS: LOWER THORAX: Redemonstration of mild bibasilar linear atelectatic/fibrotic changes. LIVER: Unremarkable. No gross lesion or ductal dilatation. GALLBLADDER AND BILE DUCTS: Gallstone. PANCREAS: Unremarkable. No gross lesion or ductal dilatation. SPLEEN: Unremarkable. ADRENALS: Unremarkable. No mass. KIDNEYS AND URETERS: Unremarkable. No hydronephrosis. No solid mass. VASCULATURE: Unremarkable. No aortic aneurysm. No aortic atherosclerotic calcification or mural plaque present. BOWEL: Left-sided colonic diverticulosis. APPENDIX: Unremarkable. Normal appendix. PERITONEUM: Unremarkable. No free fluid. No free air. LYMPH NODES: Unremarkable. No enlarged lymph nodes. BLADDER: Unremarkable. REPRODUCTIVE: Hysterectomy. BONES: No acute fracture. OTHER FINDINGS: Ventral abdominal wall hernia containing omental fat. IMPRESSION: Diverticulosis. Cholelithiasis. Ventral abdominal wall hernia. Status post hysterectomy. No acute pathology.
--- NOTE | 2018-09-17 11:35 | ED PDOC ---
HPI: Back Time Seen by Provider: 09/17/18 08:13 Chief Complaint (Nursing): Back Pain Chief Complaint (Provider): Shoulder pain, headache, abdominal pain History Per: Patient History/Exam Limitations: no limitations Onset/Duration Of Symptoms: Days Current Symptoms Are (Timing): Still Present Additional Complaint(s): Candice Freeman is a 73 year old female with a past medical history of hypertension, hypercholesterolemia, CAD, and diverticulitis who is presenting to the ED for multiple complaints. Patient complains of left shoulder pain, abdominal pain, diarrhea, and headache. She states that she has had abdominal pain and diarrhea onset 5 days ago with watery diarrhea and left lower quadrant abdominal pain. Over the weekend, she admits that she was seen at [facility] ER for abdominal pain but refused CT and signed out. Patient states that she had another episode of abdominal pain today and since last night she has had left neck and shoulder pain that is non-radiating and worse with movement. Patient denies any chest pain, difficulty breathing, weakness or numbness. She also complains of an intermittent headache associated with lightheadedness onset 1 we ek ago. She denies taking any medications for pain but admits that she has taken Tramadol in the past for pain. PMD: Ernesto Nam Past Medical History Reviewed: Historical Data, Nursing Documentation, Vital Signs Vital Signs: Last Vital Signs Temp 98.3 F 09/17/18 07:34 Pulse 69 09/17/18 07:34 Resp 20 09/17/18 07:34 BP 167/86 H 09/17/18 07:34 Pulse Ox 97 09/17/18 07:34 - Medical History PMH: Anemia, Anxiety, Arthritis (NECK AND BACK), Asthma, CAD (with stent x1), Depression, Diverticulitis, HTN, Hypercholesterolemia, Pneumonia, Sleep Apnea Denies: HIV, Chronic Kidney Disease - Surgical History Other surgeries: stent placement - Family History Family History: States: Unknown Family Hx - Social History Current smoker - smoking cessation education provided: No Alcohol: None Drugs: Denies - Immunization History Hx Influenza Vaccination: No Hx Pneumococcal Vaccination: No - Home Medications Home Medications: Ambulatory Orders Medication Instructions Recorded ALPRAZolam [Xanax] 0.25 mg PO Q12 PRN 12/16/15 Budesonide/Formoterol Fumarate 2 puff IH Q12 07/26/17 [Symbicort 80-4.5 Mcg Inhaler] Gabapentin Enacarbil [Horizant] 300 mg PO HS PRN 07/26/17 Aspirin [Ecotrin] 81 mg PO DAILY #30 tabec 11/23/17 Clopidogrel [Plavix] 75 mg PO DAILY tab 11/23/17 Amoxicillin [Amoxil 250 mg Cap] 250 mg PO Q8 07/30/18 Cetirizine HCl [Aller-Hellen] 10 mg PO DAILY PRN 07/30/18 Chlorthalidone [Hygroton] 25 mg PO DAILY 07/30/18 Rosuvastatin Calcium [Crestor] 10 mg PO HS 07/30/18 Telmisartan/Hydrochlorothiazid 1 tab PO DAILY 07/30/18 [Micardis Hct 40-12.5 mg Tablet] tiZANidine [Zanaflex] 8 mg PO HS PRN 07/30/18 Fluconazole [Diflucan] 150 mg PO Q72H #2 tab 07/31/18 Lactulose [Constulose] 10 gm PO HS PRN #200 ml 07/31/18 - Allergies Allergies/Adverse Reactions: Allergies Allergy/AdvReac Type Severity Reaction Status Date / Time ciprofloxacin [From Cipro] Allergy RASH Verified 09/17/18 07:45 ciprofloxacin HCl Allergy RASH Verified 09/17/18 07:45 [From Cipro] iodine Allergy RASH Verified 09/17/18 07:45 ondansetron HCl Allergy ANAPHYLAXIS Verified 09/17/18 07:45 [From Zofran (as hydrochloride)] pneumococcal vaccine Allergy RASH Verified 09/17/18 07:45 hydromorphone HCl AdvReac Intermediate ANAPHYLAXIS Verified 09/17/18 07:45 [From Dilaudid] Review of Systems ROS Statement: Except As Marked, All Systems Reviewed And Found Negative Constitutional: Negative for: Fever Cardiovascular: Negative for: Chest Pain Respiratory: Negative for: Shortness of Breath Gastrointestinal: Positive for: Abdominal Pain, Diarrhea Musculoskeletal: Positive for: Shoulder Pain Neurological: Positive for: Headache, Other (lightheadedness). Negative for: Weakness, Numbness Physical Exam - Reviewed Nursing Documentation Reviewed: Yes Vital Signs Reviewed: Yes - Physical Exam Appears: Positive for: Well, Non-toxic, No Acute Distress Head Exam: Positive for: ATRAUMATIC, NORMAL INSPECTION, NORMOCEPHALIC Skin: Positive for: Normal Color, Warm, DRY Eye Exam: Positive for: EOMI, Normal appearance, PERRL ENT: Positive for: Normal ENT Inspection Neck: Positive for: Normal, Painless ROM Cardiovascular/Chest: Positive for: Regular Rate, Rhythm. Negative for: Murmur Respiratory: Positive for: Normal Breath Sounds. Negative for: Respiratory Distress Gastrointestinal/Abdominal: Positive for: Normal Exam, Soft. Negative for: Tenderness, Mass, Distended, Guarding, Rebound Back: Positive for: Normal Inspection. Negative for: L CVA Tenderness, R CVA Tenderness Extremity: Positive for: Normal ROM, Tenderness (tenderness to left trapezius, pain with movement) Neurologic/Psych: Positive for: Alert, Oriented. Negative for: Motor/Sensory Deficits - Laboratory Results Result Diagrams: 09/17/18 09:05 09/17/18 09:05 - ECG O2 Sat by Pulse Oximetry: 97 (RA) Pulse Ox Interpretation: Normal - Progress Re-evaluation Time: 13:12 Condition: Re-examined, Improved Medical Decision Making Medical Decision Making: Time: 8:27 Impression: headache with dizziness, shoulder pain, abdominal pain Differentials: diverticulitis, colitis, musculoskeletal pain, cervical radiculopathy, intracranial mass, intracranial bleeding Plan: --CT Abdomen --CT Head --EKG --BMP --Troponin --ED Urine Dipstick --CBC --Flexeril 10 mg PO --Potassium Chloride 20 meq PO --Toradol [address] Abdomen: FINDINGS: LOWER THORAX: Redemonstration of mild bibasilar linear atelectatic/fibrotic changes. LIVER: Unremarkable. No gross lesion or ductal dilatation. GALLBLADDER AND BILE DUCTS: Gallstone. PANCREAS: Unremarkable. No gross lesion or ductal dilatation. SPLEEN: Unremarkable. ADRENALS: Unremarkable. No mass. KIDNEYS AND URETERS: Unremarkable. No hydronephrosis. No solid mass. VASCULATURE: Unremarkable. No aortic aneurysm. No aortic atherosclerotic calcification or mural plaque present. BOWEL: Left-sided colonic diverticulosis. APPENDIX: Unremarkable. Normal appendix. PERITONEUM: Unremarkable. No free fluid. No free air. LYMPH NODES: Unremarkable. No enlarged lymph nodes. BLADDER: Unremarkable. REPRODUCTIVE: Hysterectomy. BONES: No acute fracture. OTHER FINDINGS: Ventral abdominal wall hernia containing omental fat. IMPRESSION: Diverticulosis. Cholelithiasis. Ventral abdominal wall hernia. Status post hysterectomy. No acute pathology. CT Head: FINDINGS: HEMORRHAGE: No intracranial hemorrhage. BRAIN: No mass effect or edema. No atrophy or chronic microvascular ischemic changes. VENTRICLES: Unremarkable. No hydrocephalus. CALVARIUM: Unremarkable. PARANASAL SINUSES: Unremarkable as visualized. No significant inflammatory changes. MASTOID AIR CELLS: Unremarkable as visualized. No inflammatory changes. OTHER FINDINGS: None. IMPRESSION: Normal CT of the Head. Scribe Attestation: Documented by Kenna Chen, acting as a scribe for Carlos Alberto Alfredo MD. Provider Scribe Attestation: All medical record entries made by the Scribe were at my direction and personally dictated by me. I have reviewed the chart and agree that the record accurately reflects my personal performance of the history, physical exam, medical decision making, and the department course for this patient. I have also personally directed, reviewed, and agree with the discharge instructions and disposition. Disposition - Clinical Impression Clinical Impression: Abdominal pain, Neck pain on left side, Shoulder pain, left, Headache - Patient ED Disposition Is Patient to be Admitted: No - Disposition Referrals: Ernesto Nam MD [Family Provider] - Kan Rojas MD [Staff Provider] - Disposition: Routine/Home Disposition Time: 13:13 Condition: IMPROVED Additional Instructions: CANDICE FREEMAN, thank you for letting us take care of you today. Your provider was Carlos Alberto Alfredo MD and you were treated for NECK PAIN, RT SHOULDER PAIN, DIZZINESS. The emergency medical care you received today was directed at your acute symptoms. If you were prescribed any medication, please fill it and take as directed. It may take several days for your symptoms to resolve. Return to the Emergency Department if your symptoms worsen, do not improve, or if you have any other problems. Please contact your doctor or call one of the physicians/clinics you have been referred to that are listed on the Patient Visit Information form that is included in your discharge packet. Bring any paperwork you were given at discharge with you along with any medications you are taking to your follow up visit. Our treatment cannot replace ongoing medical care by a primary care provider outside of the emergency department. Thank you for allowing the [facility] team to be part of your care today. If you had an X-Ray or CT scan: A Radiologist will review the ED reading if any change in treatment is needed we will contact you. If you had a blood, urine, or wound culture: It will take several days for the results, if any change in treatment is needed we will contact you. If you had an STI test: It will take 48 hours for the results. Please call after 1 week if you have not heard back. Instructions: Headache, Adult, Stomach Ache and Stomach Upset, Shoulder Pain (DC)
--- NOTE | 2018-09-17 12:07 | CT ---
Date of service: 09/17/2018 PROCEDURE: CT HEAD WITHOUT CONTRAST. HISTORY: headache COMPARISON: None available. TECHNIQUE: Axial computed tomography images were obtained through the head/brain without intravenous contrast. Radiation dose: Total exam DLP = 909.11 mGy-cm. This CT exam was performed using one or more of the following dose reduction techniques: Automated exposure control, adjustment of the mA and/or kV according to patient size, and/or use of iterative reconstruction technique. FINDINGS: HEMORRHAGE: No intracranial hemorrhage. BRAIN: No mass effect or edema. No atrophy or chronic microvascular ischemic changes. VENTRICLES: Unremarkable. No hydrocephalus. CALVARIUM: Unremarkable. PARANASAL SINUSES: Unremarkable as visualized. No significant inflammatory changes. MASTOID AIR CELLS: Unremarkable as visualized. No inflammatory changes. OTHER FINDINGS: None. IMPRESSION: Normal CT of the Head.
[2018-09-17 12:19] VITALS: BP 127/62; PULSE 62; RESP 18; TEMP 97.9
[2018-09-17 13:14] VITALS: O2SAT 97
--- NOTE | 2018-09-17 20:39 | CARD ---
APPROVED REPORT Date of service: 09/17/2018 EKG Measurement Heart [id number] <Conclusion> Normal sinus rhythm Inferior infarct, age undetermined Abnormal ECG
== END 2018-09-17 13:20 | disposition home or self-care (01) ==
LOC: H.ER 07:30
DX: R10.9 Unspecified abdominal pain (principal); M54.2 Cervicalgia; M25.512 Pain in left shoulder; R51 Headache
CPT/HCPCS: 70450; 74176; 80048; 84484; 85025; 93005; 96374; 99284; J1885

== ENCOUNTER 2019-02-24 16:06 | Emergency (ER) | payer MEDICARE, OTHER ==
[2019-02-24 16:06] VITALS: BMI 28.3
[2019-02-24 16:14] VITALS: O2SAT 99
--- NOTE | 2019-02-24 16:38 | ED PDOC ---
HPI: Trauma/Fall - HPI Time Seen by Provider: 02/24/19 16:16 Chief Complaint (Nursing): Trauma Chief Complaint (Provider): Trauma History Per: Patient History/Exam Limitations: no limitations Injury Occurred (Timing): Just Before Arrival Additional Complaint(s): 73 year old female presents to the ED for evaluation s/p a trip and fall. Patient reports that just before arrival after leaving her gynecologists appointment, she tripped and fell on uneven pavement, bracing herself with outstretched hands. She reports landing on her hands and knees, and then hit just her nose on the ground. She notes a few bystanders helped her into a store where she had two episodes of diarrhea and became upset. Denies hitting her head, loss of consciousness, dizziness, nausea, abdominal pain, vomiting, and taking any medications besides her daily 81mg Aspirin and 1/2 of a 0.25mg Xanax about 1 hours before arrival. Currently, she states she feels ok, but just has some nose, bilateral knee, and lower back pain (she thinks she overstretched her back upon falling). PMD: Ernesto Nam Past Medical History Reviewed: Historical Data, Nursing Documentation, Vital Signs Vital Signs: Last Vital Signs Temp 98.7 F 02/24/19 16:11 Pulse 67 02/24/19 16:11 Resp 16 02/24/19 16:11 BP 131/74 02/24/19 16:11 Pulse Ox 99 02/24/19 16:11 - Medical History PMH: Anemia, Anxiety, Arthritis (NECK AND BACK), Asthma, CAD (with stent x1), Depression, Diverticulitis, HTN, Hypercholesterolemia, Pneumonia, Sleep Apnea Denies: HIV, Chronic Kidney Disease - Surgical History Other surgeries: coronary stent x1 - Family History Family History: States: Unknown Family Hx - Social History Current smoker - smoking cessation education provided: No Alcohol: None Drugs: Denies - Immunization History Hx Influenza Vaccination: No Hx Pneumococcal Vaccination: No - Home Medications Home Medications: Ambulatory Orders Medication Instructions Recorded ALPRAZolam [Xanax] 0.25 mg PO Q12 PRN 12/16/15 Budesonide/Formoterol Fumarate 2 puff IH Q12 07/26/17 [Symbicort 80-4.5 Mcg Inhaler] Gabapentin Enacarbil [Horizant] 300 mg PO HS PRN 07/26/17 Aspirin [Ecotrin] 81 mg PO DAILY #30 tabec 11/23/17 Clopidogrel [Plavix] 75 mg PO DAILY tab 11/23/17 Amoxicillin [Amoxil 250 mg Cap] 250 mg PO Q8 07/30/18 Cetirizine HCl [Aller-Hellen] 10 mg PO DAILY PRN 07/30/18 Chlorthalidone [Hygroton] 25 mg PO DAILY 07/30/18 Rosuvastatin Calcium [Crestor] 10 mg PO HS 07/30/18 Telmisartan/Hydrochlorothiazid 1 tab PO DAILY 07/30/18 [Micardis Hct 40-12.5 mg Tablet] tiZANidine [Zanaflex] 8 mg PO HS PRN 07/30/18 Fluconazole [Diflucan] 150 mg PO Q72H #2 tab 07/31/18 Lactulose [Constulose] 10 gm PO HS PRN #200 ml 07/31/18 - Allergies Allergies/Adverse Reactions: Allergies Allergy/AdvReac Type Severity Reaction Status Date / Time ciprofloxacin [From Cipro] Allergy RASH Verified 02/24/19 16:09 ciprofloxacin HCl Allergy RASH Verified 02/24/19 16:09 [From Cipro] iodine Allergy RASH Verified 02/24/19 16:09 ondansetron HCl Allergy ANAPHYLAXIS Verified 02/24/19 16:09 [From Zofran (as hydrochloride)] pneumococcal vaccine Allergy RASH Verified 02/24/19 16:09 hydromorphone HCl AdvReac Intermediate ANAPHYLAXIS Verified 02/24/19 16:09 [From Dilaudid] Review of Systems ROS Statement: Except As Marked, All Systems Reviewed And Found Negative ENT: Positive for: Nose Pain Gastrointestinal: Positive for: Diarrhea (x2 episodes). Negative for: Nausea, Vomiting, Abdominal Pain Musculoskeletal: Positive for: Back Pain (lower), Other (bilateral knee pain) Neurological: Negative for: Dizziness, Other (loss of consciousness) Physical Exam - Reviewed Nursing Documentation Reviewed: Yes Vital Signs Reviewed: Yes - Physical Exam Appears: Positive for: No Acute Distress (laughing and having a full co nversation with daughter at bedside) Head Exam: Positive for: ATRAUMATIC (no obvious injuries noted to head or forehead, completely non-tender), NORMAL INSPECTION, NORMOCEPHALIC Skin: Positive for: Normal Color, Warm. Negative for: Rash Eye Exam: Positive for: Normal appearance, EOMI, PERRL ENT: Positive for: Other (abrasion and slight swelling to nasal bridge with some dried blood present in nares; no septal hematoma appreciated; no nasal bone deformity palpated; superficial abrasions noted to upper lip with dentition intact) Neck: Positive for: Normal, Painless ROM, Supple Cardiovascular/Chest: Positive for: Regular Rate, Rhythm Respiratory: Positive for: Normal Breath Sounds. Negative for: Respiratory Distress Gastrointestinal/Abdominal: Positive for: Normal Exam, Soft. Negative for: Tenderness Back: Positive for: Normal Inspection (no erythema, ecchymosis, abrasions, or signs of infection). Negative for: Other (point tenderness to cervical spine, thoracic region, or lumbar spine) Extremity: Positive for: Normal ROM (full ROM of bilateral knees without discomfort; full ROM actively of bilateral wrists without pain or swelling), Tenderness (bilateral knee abrasions with point tenderness over abrasions), Capillary Refill (less than two seconds) Neurological/Psych: Positive for: Awake, Alert, Symmetric/Intact Strength (bilateral upper extremities 5/5), Oriented (x3), Other (patient has full recollection of event). Negative for: Motor/Sensory Deficits - ECG O2 Sat by Pulse Oximetry: 99 (RA) Pulse Ox Interpretation: Normal Medical Decision Making Medical Decision Making: Time: 1636 Initial Impression: pain s/p trip and fall Initial Plan: --No need for imaging indicated at this time --Abrasions cleaned with normal saline and covered with bacitracin --Motrin and Flexeril given for pain --Offered patient tetanus booster, but she refused and said it made her sick three years ago --Monitor and reevaluate 17:42: Patient re-evaluated at this time, patient is aox3. having conversation with daughter in room. Patient is laughing and in good spirit. Patient states she feels well to go home. Patient stable for d/c patient states she has muscle relaxants at home and medication for pain that she can take. Daughter taking patient home. Return to ed precautions given. Patient states she understands and agrees with plan. Scribe Attestation: Documented by Katy Estrada, acting as a scribe for Pastora BellELI wallace. Provider Scribe Attestation: All medical record entries made by the Scribe were at my direction and personally dictated by me. I have reviewed the chart and agree that the record accurately reflects my personal performance of the history, physical exam, medical decision making, and the department course for this patient. I have also personally directed, reviewed, and agree with the discharge instructions and disposition. Disposition - Clinical Impression Clinical Impression: Nasal contusion, Knee contusion, Fall - Patient ED Disposition Is Patient to be Admitted: No Counseled Patient/Family Regarding: Diagnosis, Need For Followup, Rx Given - Disposition Disposition: Routine/Home Disposition Time: 17:42 Condition: STABLE Instructions: Preventing Falls in the Older Adult, Contusion (DC) - POA Present On Arrival: None
[2019-02-24] MEDS ORDERED: Bacitracin 500 Units/gm Oint Foilpak UD ONE (17:40)
[2019-02-24 17:57] VITALS: BP 130/70; PULSE 65; RESP 18; TEMP 98.9
== END 2019-02-24 17:58 | disposition home or self-care (01) ==
LOC: H.ER 16:06
DX: M25.562 Pain in left knee (principal); M25.561 Pain in right knee; I10 Essential (primary) hypertension; S00.33XA Contusion of nose, initial encounter; Z86.59 Personal history of other mental and behavioral disorders; J45.909 Unspecified asthma, uncomplicated; W01.0XXA Fall on same level from slipping, tripping and stumbling without subsequent striking against object, initial encounter; Z88.5 Allergy status to narcotic agent; Z95.5 Presence of coronary angioplasty implant and graft; Z88.8 Allergy status to other drugs, medicaments and biological substances; Z88.1 Allergy status to other antibiotic agents; Z79.899 Other long term (current) drug therapy
CPT/HCPCS: 96372; 99284; J1885

== ENCOUNTER 2019-02-26 10:21 | Emergency (ER) | payer MEDICARE, OTHER ==
[2019-02-26 10:21] VITALS: BMI 28.3
[2019-02-26 10:55] VITALS: RESP 18
[2019-02-26] MEDS ORDERED: Sodium Chloride 0.9% 1,000 ML IV STA (11:29)
--- NOTE | 2019-02-26 11:41 | ED PDOC ---
HPI: General Adult Time Seen by Provider: 02/26/19 10:53 Chief Complaint (Nursing): Upper Extremity Problem/Injury Chief Complaint (Provider): Fall History Per: Patient History/Exam Limitations: no limitations Onset/Duration Of Symptoms: Days (3-4 day ago) Additional Complaint(s): Pt. fell 4 days ago accidentally when there was a bump on the road. She fell and hit her face, hands, and knees on the sidewalk. Pt. did not have LOC. She came to the ER for evaluation and refused all imaging. Got a shot for pain and was dc. Pt. here as she has pain the face, left shoulder, both knees, back of neck. Has general weakness for 1 week. Has suprapubic pain for 1 week as well. Her obgyn rx antibiotics for this after seeing her 4 days ago, but she didn't start it yet. Past Medical History Vital Signs: Last Vital Signs Temp 97.6 F 02/26/19 10:54 Pulse 63 02/26/19 10:54 Resp 18 02/26/19 10:54 BP 149/71 02/26/19 10:54 Pulse Ox 95 02/26/19 10:54 - Medical History PMH: Anemia, Anxiety, Arthritis (NECK AND BACK), Asthma, CAD (with stent x1), Depression, Diverticulitis, HTN, Hypercholesterolemia, Pneumonia, Sleep Apnea Denies: HIV, Chronic Kidney Disease - Surgical History Surgical History: Denies: CABG - Family History Family History: States: Unknown Family Hx - Immunization History Hx Influenza Vaccination: No Hx Pneumococcal Vaccination: No - Home Medications Home Medications: Ambulatory Orders Medication Instructions Recorded ALPRAZolam [Xanax] 0.25 mg PO Q12 PRN 12/16/15 Budesonide/Formoterol Fumarate 2 puff IH Q12 07/26/17 [Symbicort 80-4.5 Mcg Inhaler] Gabapentin Enacarbil [Horizant] 300 mg PO HS PRN 07/26/17 Aspirin [Ecotrin] 81 mg PO DAILY #30 tabec 11/23/17 Clopidogrel [Plavix] 75 mg PO DAILY tab 11/23/17 Amoxicillin [Amoxil 250 mg Cap] 250 mg PO Q8 07/30/18 Cetirizine HCl [Aller-Hellen] 10 mg PO DAILY PRN 07/30/18 Chlorthalidone [Hygroton] 25 mg PO DAILY 07/30/18 Rosuvastatin Calcium [Crestor] 10 mg PO HS 07/30/18 Telmisartan/Hydrochlorothiazid 1 tab PO DAILY 07/30/18 [Micardis Hct 40-12.5 mg Tablet] tiZANidine [Zanaflex] 8 mg PO HS PRN 07/30/18 Fluconazole [Diflucan] 150 mg PO Q72H #2 tab 07/31/18 Lactulose [Constulose] 10 gm PO HS PRN #200 ml 07/31/18 Nitrofurantoin Macrocrystals 100 mg PO BID #10 cap 02/26/19 [Macrobid] - Allergies Allergies/Adverse Reactions: Allergies Allergy/AdvReac Type Severity Reaction Status Date / Time ciprofloxacin [From Cipro] Allergy RASH Verified 02/26/19 10:51 ciprofloxacin HCl Allergy RASH Verified 02/26/19 10:51 [From Cipro] iodine Allergy RASH Verified 02/26/19 10:51 ondansetron HCl Allergy ANAPHYLAXIS Verified 02/26/19 10:51 [From Zofran (as hydrochloride)] pneumococcal vaccine Allergy RASH Verified 02/26/19 10:51 hydromorphone HCl AdvReac Intermediate ANAPHYLAXIS Verified 02/26/19 10:51 [From Dilaudid] Review of Systems ROS Statement: Except As Marked, All Systems Reviewed And Found Negative Constitutional: Positive for: Weakness ENT: Positive for: Nose Pain Gastrointestinal: Positive for: Abdominal Pain Musculoskeletal: Positive for: Shoulder Pain, Arm Pain, Leg Pain Neurological: Positive for: Weakness Physical Exam - Reviewed Nursing Documentation Reviewed: Yes Vital Signs Reviewed: Yes - Physical Exam Appears: Positive for: Non-toxic, No Acute Distress Head Exam: Positive for: NORMOCEPHALIC Skin: Positive for: Normal Color, Warm, DRY Eye Exam: Positive for: EOMI, Normal appearance, PERRL ENT: Positive for: Other (no septal hematoma; nasal bridge with abrasion and mild tender) Neck: Negative for: Normal (tender mild diffuse) Cardiovascular/Chest: Positive for: Regular Rate, Rhythm Respiratory: Positive for: CNT, Normal Breath Sounds Gastrointestinal/Abdominal: Positive for: Normal Exam, Soft. Negative for: Tenderness Back: Positive for: Normal Inspection. Negative for: L CVA Tenderness, R CVA Tenderness Extremity: Positive for: Normal ROM, Tenderness (left shoulder mild; tener b/l a nterior knees with echymosis, but has full ROM), Other (b/l hands with echymosis nontender with full ROM). Negative for: Pedal Edema Neurological/Psych: Positive for: Awake, Alert, Normal Tone, post acute care nurse II-XII, Facial Droop. Negative for: Motor/Sensory Deficits - Laboratory Results Result Diagrams: 02/26/19 11:40 02/26/19 11:40 Interpretation Of Abn Labs: urine wbc - ECG ECG: Positive for: Interpreted By Me, Viewed By Me ECG Rhythm: Positive for: Sinus Bradycardia O2 Sat by Pulse Oximetry: 95 Pulse Ox Interpretation: Normal - Radiology X-Ray: Read By Radiologist X-Ray Interpretation: No Acute Disease - CT Scan/US ct Other Rad Studies (CT/US): Read By Radiologist Other Rad Interpretation: no acute - Progress ED Course And Treament: 1500: Stable. AAOx3. Pain free. Ambulated with no issues. Fu with pcp. Disposition - Clinical Impression Clinical Impression: UTI (urinary tract infection), Head injury, Shoulder injury, Knee injury - Patient ED Disposition Is Patient to be Admitted: No Counseled Patient/Family Regarding: Studies Performed, Diagnosis, Need For F ollowup, Rx Given - Disposition Referrals: Ernesto Nam MD [Family Provider] - 03/02/19 Disposition: Routine/Home Disposition Time: 15:02 Condition: STABLE Additional Instructions: Return if not better in 3 days. Prescriptions: Nitrofurantoin Macrocrystals [Macrobid] 100 mg PO BID #10 cap Instructions: Urinary Tract Infections in Adults, Closed Head Injury, Knee Pain (DC), Shoulder Sprain Forms: [employer] ([place])
[2019-02-26 11:52] LABS: BASO # 0.1 K/uL (0.0-0.2); BASO % 0.8 % (0.0-2.0); EOS # 0.1 K/uL (0.0-0.7); EOS % 1.2 % (0.0-4.0); HEMOGLOBIN 14.8 g/dL (12.0-16.0); LYMPH # 2.5 K/uL (1.0-4.3); LYMPH % 26.4 % (20.0-40.0); MEAN CELL VOLUME 94.1 fl (81.0-99.0); MEAN CORPUSCULAR HEMOGLOBIN 31.4 pg (27.0-31.0); MEAN CORPUSCULAR HGB CONC 33.3 g/dL (33.0-37.0); MEAN PLATELET VOLUME 8.7 fl (7.2-11.7); MONO # 0.9 K/uL (0.0-0.8); MONO % 9.7 % (0.0-10.0); NEUT # 5.8 K/uL (1.8-7.0); NEUT % 61.9 % (50.0-75.0); RBC 4.72 Mil/uL (3.80-5.20); RED CELL DISTRIBUTION WIDTH 13.5 % (11.5-14.5); WHITE BLOOD COUNT 9.4 K/uL (4.8-10.8)
[2019-02-26 11:58] LABS: SQUAMOUS EPITHIAL 3 /hpf (0-5); URINE BACTERIA RARE (<OCC); URINE BILIRUBIN NEGATIVE (NEGATIVE); URINE BLOOD SMALL (NEGATIVE); URINE CLARITY SLIGHTY-CLOUDY (Clear); URINE COLOR YELLOW (YELLOW); URINE GLUCOSE (UA) NEG (NEGATIVE); URINE LEUKOCYTE ESTERASE SMALL Leu/uL (Negative); URINE PROTEIN NEGATIVE (NEGATIVE); URINE UROBILINOGEN 0.2-1.0 mg/dL (0.2-1.0)
[2019-02-26 12:05] LABS: BLOOD UREA NITROGEN 18 mg/dl (7-17); CALCIUM 8.7 mg/dL (8.4-10.2); GFR NON-AFRICAN AMERICAN > 60
[2019-02-26 12:06] LABS: ALB/GLOB RATIO 1.1 (1.0-2.1); ALBUMIN 3.7 g/dL (3.5-5.0); ALT/SGPT 17 U/L (9-52); AST/SGOT 32 U/L (14-36); PROTHROMBIN TIME 11.1 Seconds (9.8-13.1)
[2019-02-26 12:08] LABS: PARTIAL THROMBOPLASTIN TIME 30.3 Seconds (25.6-37.1)
[2019-02-26 12:11] LABS: VENOUS BLOOD GAS BASE EXCESS 3.3 mmol/L (0.0-2.0); VENOUS BLOOD GAS PCO2 41 mmHg (40-60); VENOUS BLOOD GAS PO2 52 mm/Hg (30-55); VENOUS BLOOD PH 7.44 (7.32-7.43)
[2019-02-26] MEDS ORDERED: cefTRIAXone (Rocephin) 1 gm Inj IV ONE (12:15)
[2019-02-26] MEDS ORDERED: cefTRIAXone (Rocephin) 1 gm Inj ONE (12:23)
--- NOTE | 2019-02-26 12:26 | RAD ---
Date of service: 02/26/2019 PROCEDURE: Bilateral Knee Radiographs. HISTORY: pain from fall COMPARISON: None. TECHNIQUE: 4 views obtained. FINDINGS: BONES: Bone alignment and mineralization are normal. There is no acute displaced fracture or bone destruction. JOINTS: There is mild tricompartmental degenerative osteoarthrosis with reduced joint spaces, marginal osteophytes and tibial spiking, worse in the medial compartment. SOFT TISSUES: Right Knee: Normal. Left Knee: Normal. JOINT EFFUSION: Right Knee: None. Left Knee: None. OTHER FINDINGS: None. IMPRESSION: No acute displaced fracture or dislocation. Mild tricompartmental degenerative osteoarthrosis, worse in the medial compartments.
--- NOTE | 2019-02-26 12:27 | RAD ---
Date of service: 02/26/2019 HISTORY: Sepsis Patient COMPARISON: 11/21/2017. FINDINGS: LUNGS: The lungs are well inflated and clear. PLEURA: No pleural effusions or pneumothorax. CARDIOVASCULAR: The heart is normal in size. No aortic atherosclerotic calcifications present. OSSEOUS STRUCTURES: Within normal limits for the patient's age. VISUALIZED UPPER ABDOMEN: Normal. OTHER FINDINGS: None. IMPRESSION: No active pulmonary disease.
--- NOTE | 2019-02-26 12:30 | RAD ---
Date of service: 02/26/2019 PROCEDURE: Radiographs of the left shoulder HISTORY: shoulder pain COMPARISON: 11/21/2017. FINDINGS: BONES: Bone alignment and mineralization are normal. There is no acute displaced fracture or bone destruction. JOINTS: There is severe degenerative osteoarthrosis in the acromioclavicular joint with severe reduced joint space and marginal spurring. The glenohumeral joint is preserved. No significant degenerative osteoarthrosis. SOFT TISSUES: Normal. OTHER FINDINGS: None. IMPRESSION: No acute displaced fracture or dislocation. Severe degenerative osteoarthrosis in the acromioclavicular joint.
--- NOTE | 2019-02-26 12:46 | CT ---
Date of service: 02/26/2019 PROCEDURE: CT HEAD WITHOUT CONTRAST. HISTORY: Headache COMPARISON: 09/17/2018. TECHNIQUE: Axial computed tomography images were obtained through the head/brain without intravenous contrast. Radiation dose: Total exam DLP = 849.87 mGy-cm. This CT exam was performed using one or more of the following dose reduction techniques: Automated exposure control, adjustment of the mA and/or kV according to patient size, and/or use of iterative reconstruction technique. FINDINGS: HEMORRHAGE: No intracranial hemorrhage. BRAIN: Leach-white matter differentiation is preserved. There is no mass, mass effect or abnormal extra-axial fluid collection. There is no territorial infarction. The midline sagittal structures are normal. VENTRICLES: The ventricles are normal in size, shape and configuration. CALVARIUM: There is no calvarial fracture or extracranial soft tissue swelling. There is mild hyperostosis frontalis interna. PARANASAL SINUSES: Predominantly clear. MASTOID AIR CELLS: Predominantly clear. OTHER FINDINGS: None. IMPRESSION: No acute intracranial abnormality.
--- NOTE | 2019-02-26 13:01 | CT ---
Date of service: 02/26/2019 PROCEDURE: CT MAXILLOFACIAL BONES WITHOUT CONTRAST HISTORY: facial pain COMPARISON: None available. TECHNIQUE: Contiguous axial CT images of the maxillofacial bones were obtained. Coronal and sagittal reformats were generated. Radiation dose: Total exam DLP = 764.18 mGy-cm. This CT exam was performed using one or more of the following dose reduction techniques: Automated exposure control, adjustment of the mA and/or kV according to patient size, and/or use of iterative reconstruction technique. FINDINGS: NASAL BONES: Unremarkable. ORBITS: Right-sided scleral band suggested. Bilateral orbits are otherwise unremarkable appearing. PARANASAL SINUSES/ MASTOIDS: Normal development and aeration of the perineal sinuses appreciated diffusely. Rightward bony nasal septal deviation is encountered. MAXILLA: Unremarkable. MANDIBLE/ TEMPOROMANDIBULAR JOINTS: Unremarkable. SKULL BASE: Unremarkable. TEMPORAL BONES: Middle ears and mastoid grossly unremarkable. OTHER FINDINGS: None. IMPRESSION: Right orbit scleral band identified. No facial edema, fluid collection or fracture identified.
--- NOTE | 2019-02-26 13:23 | CT ---
Date of service: 02/26/2019 PROCEDURE: CT Cervical Spine without contrast HISTORY: neck pain COMPARISON: None available. TECHNIQUE: Axial computed tomography images were obtained of the cervical spine without the use of intravenous contrast. Coronal and sagittal reformatted images were created and reviewed. Radiation dose: Total exam DLP = 299.65 mGy-cm. This CT exam was performed using one or more of the following dose reduction techniques: Automated exposure control, adjustment of the mA and/or kV according to patient size, and/or use of iterative reconstruction technique. FINDINGS: VERTEBRAE: No fractures identified. There is straightening of the cervical curvature. However, there is a minimal degenerative spondylolisthesis of C3 anterior to C4 due to facet joint degenerative arthropathy symmetrically. Posterior elements are otherwise intact throughout. Mild multilevel spondylosis appreciated throughout the mid and inferior cervical spine. No destructive bony lesion identified. The C1-2 articulation is rather degenerated but otherwise intact. The odontoid process appears intact. Craniocervical junction is unremarkable grossly. DISCS/SPINAL CANAL/NEURAL FORAMINA: At C2-3, no central canal or neural foraminal stenosis appreciated. At C3-4, there is no significant central stenosis although grade 1 spondylolisthesis is appreciated. Moderate to severe right and borderline left degenerative neural foraminal stenoses are identified, due to bilateral facet joint and uncovertebral arthropathy. Arthropathy is greater the right than left facet joints significantly. At C4-5, a disc osteophyte complex causes moderate central canal stenosis slightly greater the left and right sides due to asymmetry in the osteophytes. Further, severe bilateral neural foraminal stenosis appreciated on degenerative basis. At C5-6, a [id number] central canal stenosis identified due to a disc osteophyte complex with severe degenerative neural foraminal stenoses also seen symmetrically. At C6-7, a disc osteophyte is slightly greater the right than left sides resulting in a moderate central canal stenosis. Severe right and moderate to severe left degenerative neural foraminal stenoses are appreciated. At C7-T1, no significant stenosis appreciated. No gross disc herniation appreciable throughout the exam however MRI is more sensitive in evaluation of intervertebral discs. PARASPINAL SOFT TISSUES: Unremarkable. OTHER FINDINGS: None. IMPRESSION: No definite fracture appreciated or traumatic spondylolisthesis. Nevertheless, a degenerative grade 1 spondylolisthesis appreciate C3-4 as per above. Multilevel degenerative spondylosis is appreciated resulting in variable mid to inferior central canal stenoses, seen worst at C6-7 where moderate central stenosis is identified. Multilevel neural foraminal stenoses on degenerative basis seen worst at C4-5 and C5-6 where but severe bilateral neural foraminal stenoses are encountered.
[2019-02-26 15:12] VITALS: BP 147/70; PULSE 88; TEMP 97.8; O2SAT 99
--- NOTE | 2019-02-27 09:50 | CARD ---
APPROVED REPORT Date of service: 02/26/2019 EKG Measurement Heart [id number] <Conclusion> Sinus bradycardia Inferior infarct, age undetermined Abnormal ECG
== END 2019-02-26 16:00 | disposition home or self-care (01) ==
LOC: H.ER 10:21
DX: S09.90XA Unspecified injury of head, initial encounter (principal); S49.92XA Unspecified injury of left shoulder and upper arm, initial encounter; S89.90XA Unspecified injury of unspecified lower leg, initial encounter; W19.XXXA Unspecified fall, initial encounter; Y92.480 Sidewalk as the place of occurrence of the external cause; N39.0 Urinary tract infection, site not specified
CPT/HCPCS: 70450; 70486; 71045; 72125; 73030; 73562; 80053; 81003; 82803; 83735; 84100; 84484; 85025; 85610; 85730; 87040; 87086; 93005; 96361; 96365; 99285; J0696; J7030

== ENCOUNTER 2019-03-28 15:44 | Emergency (ER) | payer MEDICARE, OTHER ==
[2019-03-28 15:44] VITALS: BMI 28.3
[2019-03-28 15:52] VITALS: RESP 16
--- NOTE | 2019-03-28 16:17 | ED PDOC ---
HPI: Headache Time Seen by Provider: 03/28/19 15:54 Chief Complaint (Nursing): Dizziness/Lightheaded History Per: Patient Onset/Duration Of Symptoms: Other (1 month) Current Symptoms Are (Timing): Still Present Severity: Mild Quality: Other Preceeding Symptoms: None Associated Symptoms: Blurred Vision. denies: Photophobia, Nausea, Vomiting, Ex tremity Weakness Additional Complaint(s): Fell 02/23 injury to face and foreheadDenies focal weakness., seen here 02/[address] head and maxillofacial bones. Has persistent frontal headache/pressure. Has chronic right sided visual changes. No new fall or injury. Past Medical History Vital Signs: Last Vital Signs Temp 98.3 F 03/28/19 15:48 Pulse 107 H 03/28/19 15:48 Resp 16 03/28/19 15:48 BP 128/76 03/28/19 15:48 Pulse Ox 97 03/28/19 15:48 Primary Care Provider: Ernesto Nam - Medical History PMH: Anemia, Anxiety, Arthritis (NECK AND BACK), Asthma, CAD (with stent x1), Depression, Diverticulitis, HTN, Hypercholesterolemia, Pneumonia, Sleep Apnea Denies: HIV, Chronic Kidney Disease - Surgical History Surgical History: Denies: CABG - Family History Family History: States: Unknown Family Hx - Immunization History Hx Influenza Vaccination: No Hx Pneumococcal Vaccination: No - Home Medications Home Medications: Ambulatory Orders Medication Instructions Recorded ALPRAZolam [Xanax] 0.25 mg PO Q12 PRN 12/16/15 Budesonide/Formoterol Fumarate 2 puff IH Q12 07/26/17 [Symbicort 80-4.5 Mcg Inhaler] Gabapentin Enacarbil [Horizant] 300 mg PO HS PRN 07/26/17 Aspirin [Ecotrin] 81 mg PO DAILY #30 tabec 11/23/17 Clopidogrel [Plavix] 75 mg PO DAILY tab 11/23/17 Amoxicillin [Amoxil 250 mg Cap] 250 mg PO Q8 07/30/18 Cetirizine HCl [Aller-Hellen] 10 mg PO DAILY PRN 07/30/18 Chlorthalidone [Hygroton] 25 mg PO DAILY 07/30/18 Rosuvastatin Calcium [Crestor] 10 mg PO HS 07/30/18 Telmisartan/Hydrochlorothiazid 1 tab PO DAILY 07/30/18 [Micardis Hct 40-12.5 mg Tablet] tiZANidine [Zanaflex] 8 mg PO HS PRN 07/30/18 Fluconazole [Diflucan] 150 mg PO Q72H #2 tab 07/31/18 Lactulose [Constulose] 10 gm PO HS PRN #200 ml 07/31/18 Nitrofurantoin Macrocrystals 100 mg PO BID #10 cap 02/26/19 [Macrobid] - Allergies Allergies/Adverse Reactions: Allergies Allergy/AdvReac Type Severity Reaction Status Date / Time ciprofloxacin [From Cipro] Allergy RASH Verified 03/28/19 15:47 ciprofloxacin HCl Allergy RASH Verified 03/28/19 15:47 [From Cipro] iodine Allergy RASH Verified 03/28/19 15:47 ondansetron HCl Allergy ANAPHYLAXIS Verified 03/28/19 15:47 [From Zofran (as hydrochloride)] pneumococcal vaccine Allergy RASH Verified 03/28/19 15:47 hydromorphone HCl AdvReac Intermediate ANAPHYLAXIS Verified 03/28/19 15:47 [From Dilaudid] Review of Systems Cardiovascular: Negative for: Chest Pain, Palpitations Neurological: Positive for: Headache. Negative for: Weakness, Numbness, Dizziness Physical Exam - Physical Exam Appears: Positive for: Non-toxic, No Acute Distress Head Exam: Positive for: ATRAUMATIC, NORMAL INSPECTION, NORMOCEPHALIC Eye Exam: Positive for: Normal appearance, EOMI Cardiovascular/Chest: Positive for: Regular Rate, Rhythm Respiratory: Positive for: CNT, Normal Breath Sounds Extremity: Positive for: Normal ROM Neurological/Psych: Positive for: Awake, Alert, Normal Tone. Negative for: Motor/Sensory Deficits - ECG O2 Sat by Pulse Oximetry: 97 Disposition - Clinical Impression Clinical Impression: Head injury - Patient ED Disposition Is Patient to be Admitted: No Counseled Patient/Family Regarding: Studies Performed, Diagnosis, Need For Followup - Disposition Referrals: Conrad Cee MD [Medical Doctor] - Disposition: Routine/Home Disposition Time: 16:59 Condition: FAIR Instructions: Closed Head Injury Forms: [facility] (Citizen Of [place])
--- NOTE | 2019-03-28 17:00 | CT ---
Date of service: 03/28/2019 PROCEDURE: CT HEAD WITHOUT CONTRAST. HISTORY: r/o bleed COMPARISON: 02/26/2019. CT head TECHNIQUE: Axial computed tomography images were obtained through the head/brain without intravenous contrast. Supplemental Coronal and Sagittal projections created and reviewed. Radiation dose: Total exam DLP = 876.91 mGy-cm. This CT exam was performed using one or more of the following dose reduction techniques: Automated exposure control, adjustment of the mA and/or kV according to patient size, and/or use of iterative reconstruction technique. FINDINGS: HEMORRHAGE: No intracranial hemorrhage. BRAIN: No mass effect or edema. No atrophy or chronic microvascular ischemic changes. VENTRICLES: Unremarkable. No hydrocephalus. CALVARIUM: Unremarkable. PARANASAL SINUSES: Unremarkable as visualized. No significant inflammatory changes. MASTOID AIR CELLS: Unremarkable as visualized. No inflammatory changes. OTHER FINDINGS: None. IMPRESSION: No acute intracranial abnormalities. No significant findings to account for the clinical presentation. No significant interval change compared to the prior examination(s).
[2019-03-28 17:25] VITALS: BP 132/68; PULSE 76; TEMP 98.4; O2SAT 100
== END 2019-03-28 17:02 | disposition home or self-care (01) ==
LOC: H.ER 15:44
DX: R51 Headache (principal); M62.81 Muscle weakness (generalized)